=== PATIENT | male | born 1935 | race Caucasian/White ===

== ENCOUNTER 2021-07-26 15:52 | Inpatient (IN) | payer MEDICARE ==
[2021-07-26] MEDS ORDERED: IPRATROPIUM 0.5 MG/2.5 ML NEBU INHALATION STA (15:57)
[2021-07-26] MEDS ORDERED: SODIUM CHLORIDE 0.9% 1,000 ML IV STA (15:57)
[2021-07-26] MEDS ORDERED: ALBUTEROL NEBULIZED 2.5 MG/3 ML INHALATION STA (15:57)
[2021-07-26] MEDS ORDERED: methylPREDNISolone SOD SUCCI 125 MG/2 ML VIAL IV STA (15:57)
[2021-07-26] MEDS ORDERED: cefTRIAXone IN SWFI 1,000 MG/10 ML SYRINGE IVP STA (15:58)
--- NOTE | 2021-07-26 16:16 | ED ---
General Adult HPI - General Stated complaint: Hypoxia Time Seen by Provider: 07/26/21 15:57 Source: EMS, RN notes reviewed, old records reviewed Limitations: altered mental status - History of Present Illness Initial comments: 86 yo presenting with hypoxia and increased confusion. Patient had recent manish gnosis of coronavirus and has been at the custodial for rehabilitation. Patient is unable to contribute at all to the history. History is obtained from EMS who state that the patient was more confused than usual although he does have history of dementia and was found to be hypoxic. He was started on albuterol and subcutaneous IV fluids at the custodial prior to arrival. - Related Data Home Medications Medication Instructions Recorded Confirmed Acetaminophen [Tylenol 8 Hour] 650 mg PO Q6H PRN 07/26/21 07/26/21 Albuterol Sulfate [Ventolin HFA] 2 puff INHALATION RT-Q6H PRN 07/26/21 07/26/21 Ascorbic Acid [Vitamin C] 1,000 mg PO DAILY 07/26/21 07/26/21 Atorvastatin [Lipitor] 10 mg PO HS@2000 07/26/21 07/26/21 Eleanor-Tussin 10 ml PO Q6H PRN 07/26/21 07/26/21 Lidocaine 5% Patch [Lidoderm] 1 patch TOPICAL DAILY 07/26/21 07/26/21 Loperamide [Imodium] 4 mg PO QID PRN 07/26/21 07/26/21 lisinopriL [Zestril] 20 mg PO DAILY 07/26/21 07/26/21 methocarbamoL [Robaxin] 750 mg PO Q8H PRN 07/26/21 07/26/21 Allergies Allergy/AdvReac Type Severity Reaction Status Date / Time No Known Allergies Allergy Unverified 07/26/21 16:13 Review of Systems ROS Statement: Those systems with pertinent positive or pertinent negative responses have been documented in the HPI. ROS Other: All systems not noted in ROS Statement are negative. General Exam General appearance: lethargic, in distress Head exam: Present: atraumatic, normocephalic Eye exam: Present: normal appearance, PERRL ENT exam: Present: mucous membranes dry Neck exam: Present: normal inspection. Absent: tenderness, meningismus Respiratory exam: Present: respiratory distress, rales, rhonchi, decreased breath sounds Cardiovascular Exam: Present: tachycardia, irregular rhythm GI/Abdominal exam: Present: soft. Absent: distended, tenderness, guarding Extremities exam: Present: normal capillary refill. Absent: pedal edema Neurological exam: Present: alert. Absent: oriented X3 Skin exam: Present: warm, dry, intact, cyanosis (Peripheral) Course Vital Signs 07/26/21 07/26/21 07/26/21 15:55 16:20 16:30 Temperature 97.5 F L Pulse Rate 138 H 134 H 138 H Respiratory 22 28 H 28 H Rate Blood Pressure 72/47 73/49 75/51 O2 Sat by Pulse 84 L 83 L Oximetry 07/26/21 07/26/21 07/26/21 16:38 16:45 17:00 Temperature Pulse Rate 122 H 112 H Respiratory 22 28 H 28 H Rate Blood Pressure 75/55 108/78 O2 Sat by Pulse 93 L 94 L Oximetry 07/26/21 17:15 Temperature Pulse Rate 114 H Respiratory 28 H Rate Blood Pressure 94/66 O2 Sat by Pulse 100 Oximetry EKG Findings - EKG Comments: EKG Findings:: EKG: Atrial fibrillation with RVR rate of 137, low voltage, QRS duration 101, QTC 374, there is ST segment depression in V4 and V5, no ST segment elevation. Medical Decision Making - Medical Decision Making 86-year-old male visiting for evaluation of hypoxia altered mental status. Patient presents in extremis. He is tachypneic, he is in atrial fibrillation with RVR. His blood pressure is 70 systolic. Respiratory rate 30. I did discuss with his daughter Asia the possibility of intubation for mechanical ventilation and at this time she believes that the patient would not want to be intubated. Workup reveals significant abnormalities including leukocytosis, elevated hemoglobin, he is in acute renal failure with a creatinine of 5 and elevated BUN. He is acidotic which is a combination of uremia and lactic acidosis. He has a elevated troponin and BNP. Chest x-ray is relatively clear. He does test positive for coronavirus. Influenza is negative. He started on IV fluids with improvement in blood pressure and heart rate. He started on Cardizem for rate control. He started on heparin for both atrial fibrillation with RVR and elevated troponin. He's given antibiotics to cover for a bacterial pneumonia. I did discuss case with Dr. Mckenzie who will admit. Patient is very sick and his prognosis is poor. At this time after discussion with the daughter we will make the patient a DO NOT RESUSCITATE however medical measures will continue. - Lab Data Result diagrams: 07/26/21 16:11 07/26/21 16:11 Lab Results 07/26/21 07/26/21 07/26/21 Range/Units 16:11 16:11 16:11 WBC 15.3 H (3.8-10.6) k/uL RBC 6.34 H (4.30-5.90) m/uL Hgb 18.3 H (13.0-17.5) gm/dL Hct 56.9 H (39.0-53.0) % MCV 89.6 (80.0-100.0) fL MCH 28.9 (25.0-35.0) pg MCHC 32.3 (31.0-37.0) g/dL RDW 15.7 H (11.5-15.5) % Plt Count 177 (150-450) k/uL MPV 10.2 Neutrophils % 84 % Lymphocytes % 6 % Monocytes % 7 % Eosinophils % 0 % Basophils % 1 % Neutrophils # 12.8 H (1.3-7.7) k/uL Lymphocytes # 1.0 (1.0-4.8) k/uL Monocytes # 1.1 H (0-1.0) k/uL Eosinophils # 0.1 (0-0.7) k/uL Basophils # 0.1 (0-0.2) k/uL Hypochromasia Slight PT 12.2 H (9.0-12.0) sec INR 1.1 (<1.2) APTT 22.8 (22.0-30.0) sec Sodium 137 (137-145) mmol/L Potassium 5.8 H (3.5-5.1) mmol/L Chloride 105 (98-107) mmol/L Carbon Dioxide 14 L (22-30) mmol/L Anion Gap 18 mmol/L BUN 76 H (9-20) mg/dL Creatinine 5.25 H (0.66-1.25) mg/dL Est GFR (CKD-EPI)AfAm 11 (>60 ml/min/1.73 sqM) Est GFR (CKD-EPI)NonAf 9 (>60 ml/min/1.73 sqM) Glucose 133 H (74-99) mg/dL Plasma Lactic Acid Matt (0.7-2.0) mmol/L Calcium 8.9 (8.4-10.2) mg/dL Magnesium 2.5 H (1.6-2.3) mg/dL Total Bilirubin 1.3 (0.2-1.3) mg/dL AST 411 H (17-59) U/L ALT 62 H (4-49) U/L Alkaline Phosphatase 104 (38-126) U/L Troponin I (0.000-0.034) ng/mL NT-Pro-B Natriuret Pep pg/mL Total Protein 7.9 (6.3-8.2) g/dL Albumin 4.1 (3.5-5.0) g/dL Urine Color Urine Appearance (Clear) Urine pH (5.0-8.0) Ur Specific Meta (1.001-1.035) Urine Protein (Negative) Urine Glucose (UA) (Negative) Urine Ketones (Negative) Urine Blood (Negative) Urine Nitrite (Negative) Urine Bilirubin (Negative) Urine Urobilinogen (<2.0) mg/dL Ur Leukocyte Esterase (Negative) Coronavirus (PCR) (Not Detectd) Influenza Type A RNA (Not Detectd) Influenza Type B (PCR) (Not Detectd) 07/26/21 07/26/21 07/26/21 Range/Units 16:11 16:11 16:11 WBC (3.8-10.6) k/uL RBC (4.30-5.90) m/uL Hgb (13.0-17.5) gm/dL Hct (39.0-53.0) % MCV (80.0-100.0) fL MCH (25.0-35.0) pg MCHC (31.0-37.0) g/dL RDW (11.5-15.5) % Plt Count (150-450) k/uL MPV Neutrophils % % Lymphocytes % % Monocytes % % Eosinophils % % Basophils % % Neutrophils # (1.3-7.7) k/uL Lymphocytes # (1.0-4.8) k/uL Monocytes # (0-1.0) k/uL Eosinophils # (0-0.7) k/uL Basophils # (0-0.2) k/uL Hypochromasia PT (9.0-12.0) sec INR (<1.2) APTT (22.0-30.0) sec Sodium (137-145) mmol/L Potassium (3.5-5.1) mmol/L Chloride (98-107) mmol/L Carbon Dioxide (22-30) mmol/L Anion Gap mmol/L BUN (9-20) mg/dL Creatinine (0.66-1.25) mg/dL Est GFR (CKD-EPI)AfAm (>60 ml/min/1.73 sqM) Est GFR (CKD-EPI)NonAf (>60 ml/min/1.73 sqM) Glucose (74-99) mg/dL Plasma Lactic Acid Matt 2.6 H* (0.7-2.0) mmol/L Calcium (8.4-10.2) mg/dL Magnesium (1.6-2.3) mg/dL Total Bilirubin (0.2-1.3) mg/dL AST (17-59) U/L ALT (4-49) U/L Alkaline Phosphatase (38-126) U/L Troponin I 0.075 H* (0.000-0.034) ng/mL NT-Pro-B Natriuret Pep pg/mL Total Protein (6.3-8.2) g/dL Albumin (3.5-5.0) g/dL Urine Color Urine Appearance (Clear) Urine pH (5.0-8.0) Ur Specific Meta (1.001-1.035) Urine Protein (Negative) Urine Glucose (UA) (Negative) Urine Ketones (Negative) Urine Blood (Negative) Urine Nitrite (Negative) Urine Bilirubin (Negative) Urine Urobilinogen (<2.0) mg/dL Ur Leukocyte Esterase (Negative) Coronavirus (PCR) (Not Detectd) Influenza Type A RNA Not Detected (Not Detectd) Influenza Type B (PCR) Not Detected (Not Detectd) 07/26/21 07/26/21 07/26/21 Range/Units 16:30 16:30 16:50 WBC (3.8-10.6) k/uL RBC (4.30-5.90) m/uL Hgb (13.0-17.5) gm/dL Hct (39.0-53.0) % MCV (80.0-100.0) fL MCH (25.0-35.0) pg MCHC (31.0-37.0) g/dL RDW (11.5-15.5) % Plt Count (150-450) k/uL MPV Neutrophils % % Lymphocytes % % Monocytes % % Eosinophils % % Basophils % % Neutrophils # (1.3-7.7) k/uL Lymphocytes # (1.0-4.8) k/uL Monocytes # (0-1.0) k/uL Eosinophils # (0-0.7) k/uL Basophils # (0-0.2) k/uL Hypochromasia PT (9.0-12.0) sec INR (<1.2) APTT (22.0-30.0) sec Sodium (137-145) mmol/L Potassium (3.5-5.1) mmol/L Chloride (98-107) mmol/L Carbon Dioxide (22-30) mmol/L Anion Gap mmol/L BUN (9-20) mg/dL Creatinine (0.66-1.25) mg/dL Est GFR (CKD-EPI)AfAm (>60 ml/min/1.73 sqM) Est GFR (CKD-EPI)NonAf (>60 ml/min/1.73 sqM) Glucose (74-99) mg/dL Plasma Lactic Acid Matt (0.7-2.0) mmol/L Calcium (8.4-10.2) mg/dL Magnesium (1.6-2.3) mg/dL Total Bilirubin (0.2-1.3) mg/dL AST (17-59) U/L ALT (4-49) U/L Alkaline Phosphatase (38-126) U/L Troponin I (0.000-0.034) ng/mL NT-Pro-B Natriuret Pep 4330 pg/mL Total Protein (6.3-8.2) g/dL Albumin (3.5-5.0) g/dL Urine Color Yellow Urine Appearance Clear (Clear) Urine pH 5.0 (5.0-8.0) Ur Specific Meta 1.024 (1.001-1.035) Urine Protein Trace H (Negative) Urine Glucose (UA) Negative (Negative) Urine Ketones Negative (Negative) Urine Blood Negative (Negative) Urine Nitrite Negative (Negative) Urine Bilirubin Negative (Negative) Urine Urobilinogen <2.0 (<2.0) mg/dL Ur Leukocyte Esterase Negative (Negative) Coronavirus (PCR) Detected A (Not Detectd) Influenza Type A RNA (Not Detectd) Influenza Type B (PCR) (Not Detectd) Critical Care Time Critical Care Time: Yes Total Critical Care Time: 35 Disposition Clinical Impression: Atrial fibrillation with RVR, Acute renal failure, Troponin level elevated, COVID-19, Shock Disposition: ADMITTED IP TO THIS HOSP Condition: Serious Is patient prescribed a controlled substance at d/c from ED?: No Referrals: Nonstaff,Physician [Primary Care Provider] - 1-2 days Time of Disposition: 17:41
[2021-07-26 16:21] LABS: Basophils # (A) 0.1 k/uL (0-0.2); Basophils % (A) 1 %; Eosinophils # (A) 0.1 k/uL (0-0.7); Eosinophils % (A) 0 %; HGB 18.3 gm/dL (13.0-17.5); Hypochromasia Slight; Lymphocytes % (A) 6 %; MCH 28.9 pg (25.0-35.0); MCHC 32.3 g/dL (31.0-37.0); MCV 89.6 fL (80.0-100.0); Mean Platelet Volume 10.2; Monocytes # (A) 1.1 k/uL (0-1.0); Monocytes % (A) 7 %; Neutrophils # (A) 12.8 k/uL (1.3-7.7); Neutrophils % (A) 84 %; Platelet Count 177 k/uL (150-450); RBC 6.34 m/uL (4.30-5.90); RDW 15.7 % (11.5-15.5); WBC 15.3 k/uL (3.8-10.6)
[2021-07-26 16:33] LABS: Albumin 4.1 g/dL (3.5-5.0); Calcium 8.9 mg/dL (8.4-10.2); INR 1.1 (<1.2); Magnesium 2.5 mg/dL (1.6-2.3); Partial Thromboplastin Time 22.8 sec (22.0-30.0); Potassium 5.8 mmol/L (3.5-5.1); Prothrombin Time 12.2 sec (9.0-12.0); Total Bilirubin 1.3 mg/dL (0.2-1.3); Total Protein 7.9 g/dL (6.3-8.2)
[2021-07-26 16:36] LABS: HCT 56.9 % (39.0-53.0)
--- NOTE | 2021-07-26 16:40 | XR ---
EXAMINATION TYPE: XR chest 1V portable DATE OF EXAM: 07/26/2021 COMPARISON: NONE HISTORY: Difficulty breathing TECHNIQUE: Single frontal view of the chest is obtained. FINDINGS: Patient is rotated. Aorta is dense and somewhat ectatic. Heart is enlarged. No evident pne umothorax. Patchy basilar density is present within the lungs. There is rib fracture on the right sev enth rib of indeterminate age. There are overlying artifacts. There is a spinal curvature, degenerati ve disc change. IMPRESSION: Right-sided rib fracture of indeterminate acuity. Bibasilar atelectasis, difficult to ex clude pneumonia. Rotated exam. There may be aortic ectasia. Up as indicated.
[2021-07-26] MEDS ORDERED: AZITHROMYCIN 500 MG in SODIUM CHLORIDE 0.9% 250 ML IVPB STA (16:43)
[2021-07-26] MEDS ORDERED: SODIUM CHLORIDE 0.9% 500 ML 500 ML IV ONE (16:43)
[2021-07-26 16:48] LABS: Appearance,Urine Clear (Clear); Bilirubin,Urine Negative (Negative); Blood,Urine Negative (Negative); Color,Urine Yellow; Glucose,Urine (UA) Negative (Negative); Ketones,Urine Negative (Negative); Leukocyte Esterase,Urine Negative (Negative); Nitrite,Urine Negative (Negative); Protein,Urine Trace (Negative); Specific Gravity,Urine 1.024 (1.001-1.035); Urobilinogen,Urine <2.0 mg/dL (<2.0)
[2021-07-26] MEDS ORDERED: DILTIAZEM DRIP BOLUS FROM BAG 1 MG SOLN IV ONE (16:57)
[2021-07-26] MEDS: SODIUM CHLORIDE 0.9% 1,000 ML IV SCH (17:18)
[2021-07-26] MEDS: DILTIAZEM 125 MG in SODIUM CHLORIDE 0.9% 100 ML IV SCH (17:18)
[2021-07-26] MEDS ORDERED: HEPARIN SODIUM 1,000 UN/ML (10ML VL) IV ONE (17:29)
[2021-07-26] MEDS ORDERED: HEPARIN SODIUM 1,000 UN/ML (10ML VL) IV PRN (17:29)
[2021-07-26] MEDS ORDERED: NALOXONE 0.4 MG/ML 1 ML VIAL IV PRN (17:30)
[2021-07-26] MEDS ORDERED: ACETAMINOPHEN TAB 325 MG TAB PO PRN (17:30)
[2021-07-26] MEDS ORDERED: HYDROmorphone 0.5 MG/0.5 ML SYRINGE IVP PRN (17:30)
[2021-07-26] MEDS: HEPARIN SOD,PORK IN 0.45% NACL 25,000 UNIT in 0.45% NACL 1 250ML.BAG IV SCH (19:06)
[2021-07-26] MEDS ORDERED: ALBUTEROL HFA INHALER INHALATION STA (19:42)
[2021-07-26] MEDS: DEXAMETHASONE SOD PHOSPHATE 10 MG/ML 1 ML VIAL IVP SCH (21:02)
[2021-07-26] MEDS: ATORVASTATIN 10 MG TAB PO SCH ×2 (21:02→21:15)
[2021-07-27 02:58] LABS: INR 1.3 (<1.2); Prothrombin Time 13.4 sec (9.0-12.0)
[2021-07-27 04:48] LABS: Basophils % (A) 0 %; Eosinophils % (A) 0 %; HCT 53.9 % (39.0-53.0); HGB 16.6 gm/dL (13.0-17.5); Hypochromasia Moderate; Lymphocytes # (A) 0.5 k/uL (1.0-4.8); Lymphocytes % (A) 3 %; MCH 28.6 pg (25.0-35.0); MCHC 30.9 g/dL (31.0-37.0); MCV 92.7 fL (80.0-100.0); Monocytes # (A) 0.9 k/uL (0-1.0); Monocytes % (A) 6 %; Neutrophils # (A) 14.4 k/uL (1.3-7.7); Neutrophils % (A) 90 %; Platelet Count 149 k/uL (150-450); RBC 5.82 m/uL (4.30-5.90); RDW 15.8 % (11.5-15.5)
[2021-07-27 05:49] LABS: Glucose,Whole Blood 259 mg/dL (75-99)
[2021-07-27 08:36] LABS: Albumin 2.9 g/dL (3.5-5.0); Calcium 7.7 mg/dL (8.4-10.2); Total Bilirubin 0.9 mg/dL (0.2-1.3); Total Protein 6.1 g/dL (6.3-8.2)
[2021-07-27] MEDS: DEXAMETHASONE SOD PHOSPHATE 10 MG/ML 1 ML VIAL IVP SCH (09:20)
[2021-07-27] MEDS: INSULIN ASPART (NovoLOG) 100 UNIT/ML VIAL SQ SCH ×4 (09:22→21:40)
[2021-07-27] MEDS ORDERED: VANCOMYCIN IV PER PHARMACY 1 EACH MISC MISCELLANE PRN (10:56)
[2021-07-27] MEDS ORDERED: DEXTROSE 50% SYRINGE 50 ML IVP STA (11:08)
[2021-07-27] MEDS ORDERED: INSULIN REGULAR 100 UNIT/ML VIAL (IV) IV ONE (11:09)
[2021-07-27] MEDS ORDERED: SODIUM ZIRCONIUM CYCLOSILICATE 10 GM PACKET PO ONE (11:30)
[2021-07-27 11:41] LABS: Glucose,Whole Blood 106 mg/dL (75-99)
[2021-07-27] MEDS ORDERED: DEXTROSE 50% SYRINGE 50 ML IVP ONE (11:46)
[2021-07-27] MEDS: SODIUM CHLORIDE 0.45% 1,000 ML with SODIUM BICARB (1 MEQ/ML) 100 ML IV SCH ×2 (12:00)
[2021-07-27] MEDS ORDERED: VANCOMYCIN 1,500 MG in SODIUM CHLORIDE 0.9% 250 ML IVPB ONE (12:00)
--- NOTE | 2021-07-27 12:00 | P.CNPUL ---
History of Present Illness Consult date: 07/27/21 Requesting physician: Natanael Lyn Reason for consult: dyspnea, hypoxemia Chief complaint: Hypoxemia, altered mental status, CoVID positive History of present illness: This is a 86-year-old male patient who resides in a extended care facility and had been diagnosed with coronavirus back on 07/14/2021. He is currently nonverbal. Poor historian. Unable to obtain any information from the patient. His a history of dementia, hypertension, hyperlipidemia. He is brought into the emergency room yesterday. Chest x-ray revealed right-sided rib fractures of indeterminate acuity. Bibasilar atelectasis. EKG revealed atrial fibrillation with a rapid ventricular response. He's been initiated on a Cardizem drip at 5 mg per hour. Heparin drip. He is seen today in consultation on the selective care unit. Nursing staff is at the bedside. He is currently requiring 10 L high flow nasal cannula to maintain O2 saturations in the 90s. He has a significant coccyx ulceration. Blood cultures preliminary positive for gram- positive cocci in chains. White count 16.0. Hemoglobin 16.6. INR 1.3. Sodium 140. Potassium 6.0. Bicarb 15. BUN 84. Creatinine 5.82. Lactic acid 2.4. AST 669. ALT 90. Troponin 0.075. Coronavirus by PCR positive. Influenza screen negative. Urinalysis clean. He's been afebrile. Hemodynamically stable. He's been initiated on vancomycin. Review of Systems ROS unobtainable: due to mental status 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 Past Drug Use History: Unable to Obtain Medications and Allergies Home Medications Medication Instructions Recorded Confirmed Type Acetaminophen [Tylenol 8 Hour] 650 mg PO Q6H PRN 07/26/21 07/26/21 History Albuterol Sulfate [Ventolin HFA] 2 puff INHALATION RT-Q6H PRN 07/26/21 07/26/21 History Ascorbic Acid [Vitamin C] 1,000 mg PO DAILY 07/26/21 07/26/21 History Atorvastatin [Lipitor] 10 mg PO HS@199907/26/21 07/26/21 History Eleanor-Tussin 10 ml PO Q6H PRN 07/26/21 07/26/21 History Lidocaine 5% Patch [Lidoderm] 1 patch TOPICAL DAILY 07/26/21 07/26/21 History Loperamide [Imodium] 4 mg PO QID PRN 07/26/21 07/26/21 History lisinopriL [Zestril] 20 mg PO DAILY 07/26/21 07/26/21 History methocarbamoL [Robaxin] 750 mg PO Q8H PRN 07/26/21 07/26/21 History Allergies Allergy/AdvReac Type Severity Reaction Status Date / Time No Known Allergies Allergy Unverified 07/26/21 16:13 Physical Exam Vitals: Vital Signs Temp Pulse Pulse Resp BP BP Pulse Ox 07/27/21 04:00 97.1 F L 98 24 95/53 99 07/26/21 22:15 98.1 F 113 H 30 H 89/53 98 07/26/21 22:00 98.0 F 116 H 24 134/87 98 07/26/21 20:43 117 H 22 116/74 95 07/26/21 20:21 97 07/26/21 17:15 114 H 28 H 94/66 100 07/26/21 17:00 112 H 28 H 108/78 94 L 07/26/21 16:45 122 H 28 H 75/55 93 L 07/26/21 16:38 22 07/26/21 16:30 138 H 28 H 75/51 83 L 07/26/21 16:20 134 H 28 H 73/49 84 L 07/26/21 15:55 97.5 F L 138 H 22 72/47 Intake and Output 07/26/21 07/27/21 07/27/21 22:59 06:59 14:59 Intake Total 82.183 48.169 Balance 82.183 48.169 Intake: Intake, IV Titration 82.183 48.169 Amount Heparin Sod,Pork in 0.45% 82.183 48.169 NaCl 25,000 unit In 0.45 % NaCl 1 250ml.bag @ 11. 025 UNITS/KG/HR 10.002 mls/hr IV .Q24H [facility] Rx#: [id number] Other: Voiding Method Diaper Diaper Incontinent Incontinent # Voids 1 # Bowel Movements 1 Weight 90.718 kg GENERAL EXAM: Awake, nonverbal, frail 86-year-old male patient on 10 L high flow nasal cannula, comfortable in no apparent distress. HEAD: Normocephalic. EYES: Normal reaction of pupils, equal size. NOSE: Clear with pink turbinates. THROAT: No erythema or exudates. NECK: No masses, no JVD. CHEST: No chest wall deformity. LUNGS: Equal air entry with bilateral scattered rhonchi. CVS: S1 and S2 normal with no audible murmur, regular rhythm. ABDOMEN: No hepatosplenomegaly, normal bowel sounds, no guarding or rigidity. SPINE: No scoliosis or deformity SKIN: No rashes CENTRAL NERVOUS SYSTEM: No focal deficits, tone is normal in all 4 extremities. EXTREMITIES: There is no peripheral edema. No clubbing, no cyanosis. Peripheral pulses are intact. Results - Laboratory Findings CBC and BMP: 07/27/21 04:03 07/27/21 07:17 PT/INR, D-dimer PT 13.4 sec (9.0-12.0) H 07/27/21 01:57 INR 1.3 (<1.2) H 07/27/21 01:57 Abnormal lab findings: Abnormal Labs 07/26/21 07/26/21 07/26/21 16:11 16:11 16:11 WBC 15.3 H RBC 6.34 H Hgb 18.3 H Hct 56.9 H MCHC RDW 15.7 H Plt Count Neutrophils # 12.8 H Lymphocytes # Monocytes # 1.1 H PT 12.2 H INR APTT Potassium 5.8 H Chloride Carbon Dioxide 14 L BUN 76 H Creatinine 5.25 H Glucose 133 H POC Glucose (mg/dL) Plasma Lactic Acid Matt Calcium Magnesium 2.5 H AST 411 H ALT 62 H Troponin I Total Protein Albumin Urine Protein Coronavirus (PCR) 07/26/21 07/26/21 07/26/21 16:11 16:11 16:30 WBC RBC Hgb Hct MCHC RDW Plt Count Neutrophils # Lymphocytes # Monocytes # PT INR APTT Potassium Chloride Carbon Dioxide BUN Creatinine Glucose POC Glucose (mg/dL) Plasma Lactic Acid Matt 2.6 H* Calcium Magnesium AST ALT Troponin I 0.075 H* Total Protein Albumin Urine Protein Trace H Coronavirus (PCR) 07/26/21 07/26/21 07/26/21 16:30 19:20 21:42 WBC RBC Hgb Hct MCHC RDW Plt Count Neutrophils # Lymphocytes # Monocytes # PT INR APTT Potassium 5.6 H Chloride Carbon Dioxide BUN Creatinine Glucose POC Glucose (mg/dL) Plasma Lactic Acid Matt 5.1 H* Calcium Magnesium AST ALT Troponin I Total Protein Albumin Urine Protein Coronavirus (PCR) Detected A 07/26/21 07/27/21 07/27/21 23:15 01:57 01:57 WBC RBC Hgb Hct MCHC RDW Plt Count Neutrophils # Lymphocytes # Monocytes # PT 13.4 H INR 1.3 H APTT 107.7 H* Potassium Chloride Carbon Dioxide BUN Creatinine Glucose POC Glucose (mg/dL) Plasma Lactic Acid Matt 4.3 H* Calcium Magnesium AST ALT Troponin I Total Protein Albumin Urine Protein Coronavirus (PCR) 07/27/21 07/27/21 07/27/21 04:03 04:03 05:48 WBC 16.0 H RBC Hgb Hct 53.9 H MCHC 30.9 L RDW 15.8 H Plt Count 149 L Neutrophils # 14.4 H Lymphocytes # 0.5 L Monocytes # PT INR APTT Potassium Chloride Carbon Dioxide BUN Creatinine Glucose POC Glucose (mg/dL) 259 H Plasma Lactic Acid Matt 2.7 H* Calcium Magnesium AST ALT Troponin I Total Protein Albumin Urine Protein Coronavirus (PCR) 07/27/21 07/27/21 07/27/21 07:17 07:17 10:00 WBC RBC Hgb Hct MCHC RDW Plt Count Neutrophils # Lymphocytes # Monocytes # PT INR APTT 81.0 H Potassium 6.0 H Chloride 111 H Carbon Dioxide 15 L BUN 84 H Creatinine 5.82 H Glucose 130 H POC Glucose (mg/dL) Plasma Lactic Acid Matt 2.4 H* Calcium 7.7 L Magnesium AST 669 H ALT 90 H Troponin I Total Protein 6.1 L Albumin 2.9 L Urine Protein Coronavirus (PCR) 07/27/21 11:40 WBC RBC Hgb Hct MCHC RDW Plt Count Neutrophils # Lymphocytes # Monocytes # PT INR APTT Potassium Chloride Carbon Dioxide BUN Creatinine Glucose POC Glucose (mg/dL) 106 H Plasma Lactic Acid Matt Calcium Magnesium AST ALT Troponin I Total Protein Albumin Urine Protein Coronavirus (PCR) - Diagnostic Findings Chest x-ray: image reviewed Assessment and Plan Assessment: 1 Acute hypoxemic respiratory failure secondary to COVID-19 pneumonia with p atchy basilar densities. Initial diagnosis on 07/14/2021 2 Right-sided rib fractures of indeterminate acuity 3 Sepsis secondary to bacteremia with gram-positive cocci 4 Transaminitis secondary to above 4 Acute on chronic renal failure 5 Deep tissue ulceration of the coccyx 6 Dementia, nonverbal 7 Atrial fibrillation with a rapid ventricular response currently on a Cardizem drip. Heparin drip. 8 Hyperkalemia Thank: The patient was seen and evaluated Chest x-ray and labs reviewed Continued on vancomycin Continue Decadron Titrate the FiO2 as tolerated Prognosis is poor DO NOT RESUSCITATE/DO NOT INTUBATE CODE STATUS We will continue to follow and make further recommendations based on his clinical status I have personally seen and examined the patient, performed the documentation and the assessment and plan as written. Number of minutes spent on the visit: 20.
--- NOTE | 2021-07-27 12:21 | P.CRDCN ---
History of Present Illness Consult date: 07/27/21 History of present illness: CHIEF COMPLAINT: A. fib with RVR HISTORY OF PRESENT ILLNESS: This is a 86-year-old male with a past medical history significant for hypertension and hyperlipidemia. 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 We have been asked to see the patient in consultation for A. fib with RVR. Patient examined at the bedside. The patient was brought to the hospital from an ECF secondary to increased confusion and hypoxia. The patient was found to be in A. fib with RVR. It does not appear that the patient has a history of atrial fibrillation. The patient was started on IV heparin and IV Cardizem. Per nursing, the patient is unable to take oral medications. * EKG reveals A. fib with RVR * Chest xray right-sided rib fractures of indeterminate acuity. Bibasilar atelectasis, difficult to exclude pneumonia. * Laboratory data: WBC 16.0. Hemoglobin 16.6. Platelet count 149. Sodium 142. Potassium 6.0. BUN 84. Creatinine 5.82. Troponin 0.075. ProBNP 4330. * Current home cardiac medications include lisinopril 20 mg daily and atorvastatin 10 mg daily REVIEW OF SYSTEMS: Thorough review of systems not completed secondary to limited evaluation/examination due to Covid19 PHYSICAL EXAM: Thorough physical exam not completed secondary to limited evaluation/examination due to Covid19 ASSESSMENT: Altered mental status Covid 19 Abnormal troponin, likely secondary to above Acute hypoxic respiratory failure Atrial fibrillation with RVR, appears to be new onset Hyperkalemia Acute renal failure Transaminitis Hypertension Hyperlipidemia PLAN: Per nursing, the patient is unable to take oral medications. Continue IV Cardizem and IV heparin. If patients condition improves and he is able to tolerate oral medications would recommend transitioning to Eliquis and metoprolol. Continue telemetry monitoring. Patients prognosis appears very poor. Recommend hospice care. Nurse practitioner note has been reviewed by physician. Signing provider agrees with the documented findings, assessment, and plan of care. 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 Past Drug Use History: Unable to Obtain Medications and Allergies Home Medications Medication Instructions Recorded Confirmed Type Acetaminophen [Tylenol 8 Hour] 650 mg PO Q6H PRN 07/26/21 07/26/21 History Albuterol Sulfate [Ventolin HFA] 2 puff INHALATION RT-Q6H PRN 07/26/21 07/26/21 History Ascorbic Acid [Vitamin C] 1,000 mg PO DAILY 07/26/21 07/26/21 History Atorvastatin [Lipitor] 10 mg PO HS@199907/26/21 07/26/21 History Eleanor-Tussin 10 ml PO Q6H PRN 07/26/21 07/26/21 History Lidocaine 5% Patch [Lidoderm] 1 patch TOPICAL DAILY 07/26/21 07/26/21 History Loperamide [Imodium] 4 mg PO QID PRN 07/26/21 07/26/21 History lisinopriL [Zestril] 20 mg PO DAILY 07/26/21 07/26/21 History methocarbamoL [Robaxin] 750 mg PO Q8H PRN 07/26/21 07/26/21 History Allergies Allergy/AdvReac Type Severity Reaction Status Date / Time No Known Allergies Allergy Unverified 07/26/21 16:13 Physical Exam Vitals: Vital Signs Temp Pulse Pulse Resp BP BP Pulse Ox 07/27/21 04:00 97.1 F L 98 24 95/53 99 07/26/21 22:15 98.1 F 113 H 30 H 89/53 98 07/26/21 22:00 98.0 F 116 H 24 134/87 98 07/26/21 20:43 117 H 22 116/74 95 07/26/21 20:21 97 07/26/21 17:15 114 H 28 H 94/66 100 07/26/21 17:00 112 H 28 H 108/78 94 L 07/26/21 16:45 122 H 28 H 75/55 93 L 07/26/21 16:38 22 07/26/21 16:30 138 H 28 H 75/51 83 L 07/26/21 16:20 134 H 28 H 73/49 84 L 07/26/21 15:55 97.5 F L 138 H 22 72/47 Intake and Output 07/26/21 07/27/21 07/27/21 22:59 06:59 14:59 Intake Total 82.183 48.169 Balance 82.183 48.169 Intake: Intake, IV Titration 82.183 48.169 Amount Heparin Sod,Pork in 0.45% 82.183 48.169 NaCl 25,000 unit In 0.45 % NaCl 1 250ml.bag @ 11. 025 UNITS/KG/HR 10.002 mls/hr IV .Q24H [facility] Rx#: [id number] Other: Voiding Method Diaper Diaper Incontinent Incontinent # Voids 1 # Bowel Movements 1 Weight 90.718 kg Results 07/27/21 04:03 07/27/21 07:17 Cardiac Enzymes 07/26/21 07/26/21 07/27/21 Range/Units 16:11 16:11 07:17 AST 411 H 669 H (17-59) U/L Troponin I 0.075 H* (0.000-0.034) ng/mL Coagulation 07/26/21 07/27/21 07/27/21 Range/Units 16:11 01:57 01:57 PT 12.2 H 13.4 H (9.0-12.0) sec APTT 22.8 107.7 H* (22.0-30.0) sec 07/27/21 Range/Units 10:00 PT (9.0-12.0) sec APTT 81.0 H (22.0-30.0) sec CBC 07/26/21 07/27/21 Range/Units 16:11 04:03 WBC 15.3 H 16.0 H (3.8-10.6) k/uL RBC 6.34 H 5.82 (4.30-5.90) m/uL Hgb 18.3 H 16.6 (13.0-17.5) gm/dL Hct 56.9 H 53.9 H (39.0-53.0) % Plt Count 177 149 L (150-450) k/uL Comprehensive Metabolic Panel 07/26/21 07/26/21 07/27/21 Range/Units 16:11 21:42 07:17 Sodium 137 142 (137-145) mmol/L Potassium 5.8 H 5.6 H 6.0 H (3.5-5.1) mmol/L Chloride 105 111 H (98-107) mmol/L Carbon Dioxide 14 L 15 L (22-30) mmol/L BUN 76 H 84 H (9-20) mg/dL Creatinine 5.25 H 5.82 H (0.66-1.25) mg/dL Glucose 133 H 130 H (74-99) mg/dL Calcium 8.9 7.7 L (8.4-10.2) mg/dL AST 411 H 669 H (17-59) U/L ALT 62 H 90 H (4-49) U/L Alkaline Phosphatase 104 76 (38-126) U/L Total Protein 7.9 6.1 L (6.3-8.2) g/dL Albumin 4.1 2.9 L (3.5-5.0) g/dL Current Medications Generic Name Dose Route Start Last Admin Trade Name Freq PRN Reason Stop Dose Admin Acetaminophen 650 mg 07/26/21 17:30 Acetaminophen Tab 325 Mg Tab PO Q6HR PRN Mild Pain or Fever > 100.5 Atorvastatin Calcium 10 mg 07/26/21 20:00 07/26/21 21:15 Atorvastatin 10 Mg Tab PO Not Given HS@2000 [facility] Dexamethasone Sodium Phosphate 6 mg 07/26/21 19:15 07/27/21 09:20 Dexamethasone Sod Phosphate 10 Mg/Ml 1 Ml Vial IVP 6 mg DAILY [facility] Administration Heparin Sodium (Porcine) 0 unit 07/26/21 17:29 Heparin Sodium 1,000 Un/Ml (10ml Vl) IV PER PROTOCOL PRN Low PTT Protocol Hydromorphone HCl 0.5 mg 07/26/21 17:30 Hydromorphone 0.5 Mg/0.5 Ml Syringe IVP Q3HR PRN Moderate Pain Diltiazem HCl 125 mg/ Sodium 125 mls @ 5 mls/hr 07/26/21 17:00 07/26/21 17:18 Chloride IV 5 mg/hr .Q24H [facility] 5 mls/hr Administration 5 MG/HR Heparin Sodium/Sodium Chloride 250 mls @ 10.002 mls/hr 07/26/21 17:30 07/27/21 11:01 25,000 unit/ Sodium Chloride IV 6.025 units/kg/hr .Q24H [facility] 5.466 mls/hr Titration Protocol 11.025 UNITS/KG/HR Sodium Bicarbonate 100 ml/ 1,100 mls @ 100 mls/hr 07/27/21 12:00 07/27/21 12:00 Sodium Chloride IV 100 mls/hr .Q11H [facility] Administration Vancomycin HCl 1,500 mg/ 250 mls @ 125 mls/hr 07/27/21 12:00 07/27/21 12:01 Sodium Chloride IVPB 07/27/21 13:59 125 mls/hr ONCE ONE Administration Vancomycin HCl 1,500 mg/ 250 mls @ 125 mls/hr 07/28/21 09:00 Sodium Chloride IVPB 07/28/21 10:59 ONCE ONE Insulin Aspart 0 unit 07/27/21 07:30 07/27/21 12:01 Insulin Aspart (Novolog) 100 Unit/Ml Vial SQ Not Given ACHS [facility] Protocol Miscellaneous Information 1 each 07/27/21 10:56 Vancomycin Iv Per Pharmacy 1 Each Misc MISCELLANE DIRECTED PRN Per Protocol Protocol Naloxone HCl 0.2 mg 07/26/21 17:30 Naloxone 0.4 Mg/Ml 1 Ml Vial IV Q2M PRN Opioid Reversal Intake and Output 07/26/21 07/27/21 07/27/21 22:59 06:59 14:59 Intake Total 82.183 48.169 Balance 82.183 48.169 Intake: Intake, IV Titration 82.183 48.169 Amount Heparin Sod,Pork in 0.45% 82.183 48.169 NaCl 25,000 unit In 0.45 % NaCl 1 250ml.bag @ 11. 025 UNITS/KG/HR 10.002 mls/hr IV .Q24H [facility] Rx#: [id number] Other: Voiding Method Diaper Diaper Incontinent Incontinent # Voids 1 # Bowel Movements 1 Weight 90.718 kg 07/27/21 04:03 07/27/21 07:17
--- NOTE | 2021-07-27 12:42 | US ---
EXAMINATION TYPE: US kidneys/renal and bladder DATE OF EXAM: 07/27/2021 COMPARISON: NONE CLINICAL HISTORY: RF. A FIB; RVR; hypoxia; COVID EXAM MEASUREMENTS: Right Kidney: 9.0 x 6.3 x 4.6 cm Left Kidney: 9.5 x 5.9 x 4.5 cm Post Void Residual Volume: not assessed on inpatient with mildly distended bladder who is unable to ambulate. Right Kidney: No hydronephrosis or masses seen Left Kidney: No hydronephrosis or masses seen Bladder: Contracted Bilateral Jets seen: NA There is no evidence for hydronephrosis at this point in time. No nephrolithiasis is seen. No livier s are identified. The urinary bladder is anechoic. IMPRESSION: There are some limitations to the exam. No evident hydronephrosis.
--- NOTE | 2021-07-27 13:22 | P.NPCON ---
History of Present Illness - Reason for Consult acute renal failure - History of Present Illness Patient is a 86-year-old male who is admitted from the [facility] with increased weakness. Patient is found to be in A. fib with RVR. He has a large sacral decub. Blood cultures are positive for gram-positive cocci. Patient is poor historian. Labs revealed serum creatinine 5.8 and potassium of 6.0 with CO2 of 15. Lactic acid was elevated and it is currently down to 2.0. Stites patient is currently voiding in brief. 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 Past Drug Use History: Unable to Obtain Medications and Allergies Home Medications Medication Instructions Recorded Confirmed Type Acetaminophen [Tylenol 8 Hour] 650 mg PO Q6H PRN 07/26/21 07/26/21 History Albuterol Sulfate [Ventolin HFA] 2 puff INHALATION RT-Q6H PRN 07/26/21 07/26/21 History Ascorbic Acid [Vitamin C] 1,000 mg PO DAILY 07/26/21 07/26/21 History Atorvastatin [Lipitor] 10 mg PO HS@2000 07/26/21 07/26/21 History Eleanor-Tussin 10 ml PO Q6H PRN 07/26/21 07/26/21 History Lidocaine 5% Patch [Lidoderm] 1 patch TOPICAL DAILY 07/26/21 07/26/21 History Loperamide [Imodium] 4 mg PO QID PRN 07/26/21 07/26/21 History lisinopriL [Zestril] 20 mg PO DAILY 07/26/21 07/26/21 History methocarbamoL [Robaxin] 750 mg PO Q8H PRN 07/26/21 07/26/21 History Allergies Allergy/AdvReac Type Severity Reaction Status Date / Time No Known Allergies Allergy Unverified 07/26/21 16:13 Physical Exam Vitals: Vital Signs Temp Pulse Pulse Resp BP BP Pulse Ox 07/27/21 04:00 97.1 F L 98 24 95/53 99 07/26/21 22:15 98.1 F 113 H 30 H 89/53 98 07/26/21 22:00 98.0 F 116 H 24 134/87 98 07/26/21 20:43 117 H 22 116/74 95 07/26/21 20:21 97 07/26/21 17:15 114 H 28 H 94/66 100 07/26/21 17:00 112 H 28 H 108/78 94 L 07/26/21 16:45 122 H 28 H 75/55 93 L 07/26/21 16:38 22 07/26/21 16:30 138 H 28 H 75/51 83 L 07/26/21 16:20 134 H 28 H 73/49 84 L 07/26/21 15:55 97.5 F L 138 H 22 72/47 Intake and Output 07/26/21 07/27/21 07/27/21 22:59 06:59 14:59 Intake Total 82.183 48.169 Balance 82.183 48.169 Intake: Intake, IV Titration 82.183 48.169 Amount Heparin Sod,Pork in 0.45% 82.183 48.169 NaCl 25,000 unit In 0.45 % NaCl 1 250ml.bag @ 11. 025 UNITS/KG/HR 10.002 mls/hr IV .Q24H [facility] Rx#: [id number] Other: Voiding Method Diaper Diaper Incontinent Incontinent # Voids 1 # Bowel Movements 1 Weight 90.718 kg Patient is awake, comfortable, not in any acute distress. 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 Acute kidney injury most likely ATN, rule out urine retention. Component of hypovolemia also present. UA is completely benign. 2. Hyperkalemia associated with acute kidney injury and metabolic acidosis 3. Lactic acidosis 4. Hypotension related to sepsis 5. A. fib with RVR maintained on Cardizem drip 6. Sepsis with blood cultures growing gram-positive cocci 7. Large sacral wound 8. Metabolic acidosis associated with acute kidney injury as well as lactic acidosis Plan: Start bicarb drip Lokelma by mouth 1 Continue empiric antibiotics Check bladder scan rule out urine retention Continue empiric antibiotics Repeat labs in a.m. Check ultrasound of the kidneys
[2021-07-27] MEDS: DILTIAZEM 125 MG in SODIUM CHLORIDE 0.9% 100 ML IV SCH (16:14)
[2021-07-27] MEDS: SODIUM CHLORIDE 0.9% 1,000 ML IV SCH (16:15)
[2021-07-27 16:27] LABS: Glucose,Whole Blood 106 mg/dL (75-99)
[2021-07-27] MEDS ORDERED: FUROSEMIDE 10 MG/ML 10 ML VIAL IV STA (18:16)
[2021-07-27] MEDS ORDERED: FUROSEMIDE 10 MG/ML 10 ML VIAL IVP STA (18:23)
[2021-07-27 20:37] LABS: Glucose,Whole Blood 94 mg/dL (75-99)
--- NOTE | 2021-07-27 21:27 | HP ---
HISTORY AND PHYSICAL This patient is an 86-year-old white male who came in with acute renal failure, COVID pneumonia, was found to have severe decubitus necrotic possibly rectal fistula or ulcerations. He was found to be in atrial fibrillation with RVR and blood culture was positive for Gram-positive cocci. He was admitted with sepsis secondary to COVID pneumonia and possibly rectal vascular ulcers and acute hypoxic respiratory failure, hyperkalemia and acute renal failure with prerenal renal insufficiency. PAST MEDICAL HISTORY: Hypertension, memory impairment, pneumonia. PAST SURGICAL HISTORY: Tonsillectomy. SOCIAL HISTORY: He is a former smoker. HOME MEDICINES: See list. ALLERGIES: NEGATIVE. PHYSICAL EXAMINATION: Vital signs: Temperature 98, heart rate 116 to 138, respiratory rate 22 to 30, pulse as mentioned in the mid 100s to 130s to 110s. Blood pressure was as low as 70s on admission, now 130s over 80s. O2 was 83 on admission, now is 99. Blood pressure is low 90s over 50s. He is awake, comfortable, but pleasantly confused. Heart S1, S2. Lungs with scattered rhonchi and decreased breath sounds. Abdomen distended, obesity. Extremities with no significant edema. BUILDING SPECIALIST: All 4 extremities are moving. Calcium is 7.7, magnesium 2.5. White count 16, hemoglobin 16.6, platelets 149, BUN 34, creatinine 5.82, sodium 142, potassium 6.0. ASSESSMENT: 1. Acute kidney injury, most likely acute tubular necrosis. 2. Hyperkalemia. 3. Lactic acidosis. 4. Hypotension related to sepsis. 5. Atrial fibrillation, rapid ventricular response. Cardizem drip. 6. Sepsis, Gram-positive cocci with positive bacteremia. 7. Large sacral wound. 8. Metabolic acidosis. Bicarb drip. 9. Hyperkalemia. Medications, antibiotics. COVID treatments. Bladder scan. Empiric antibiotics. Ultrasound of kidneys. Electrolyte abnormalities will have to be reviewed and taken care of, hypertension dealt with with fluid boluses. Prognosis extremely guarded. MMODL / IJN: [id number] /
[2021-07-27] MEDS: ATORVASTATIN 10 MG TAB PO SCH (23:09)
[2021-07-27] MEDS: HEPARIN SOD,PORK IN 0.45% NACL 25,000 UNIT in 0.45% NACL 1 250ML.BAG IV SCH (23:40)
--- NOTE | 2021-07-28 00:01 | P.CONS ---
History of Present Illness - Reason for Consult Consult date: 07/27/21 Covid and bacteremia Requesting physician: Natanael Lyn - Chief Complaint Shortness of breath x few days - History of Present Illness Patient is 86-year-old male who apparently was diagnosed with a covid19 on 07/14/2021 and this patient subsequently has been admitted from [facility] for rehabilitation patient was brought into the [facility] ER yesterday afternoon for evaluation of increasing confusion and the patient also noticed to be hypoxic, patient will presentation to the hospital was afebrile and no fever has been recorded subsequently patient was hypoxic with O2 sats of 84% on room air and is currently requiring 10 L high flow oxygen she did have white count of 15.3 with a left shift did have elevated BUN and creatinine elevated lactic acid as well as liver enzymes urine has been negative COVID test was positive influenza was negative patient did have a chest x-ray right-sided rib fracture bibasilar atelectasis difficult to exclude pneumonia patient subsequently did have blood cultures drawn which came back positive with gram-positive cocci patient was started on vancomycin infectious disease was consulted for further management most information has been obtained from review the chart and the patient himself evaluated good historian no specifically has been complaining of shortness of breath but denies any chest pain he did have a cough not bringing up any sputum no vomiting or diarrhea has been reported Review of Systems Positive point has been mentioned in the HPI rest of the systems are negative 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 Past Drug Use History: Unable to Obtain Medications and Allergies Home Medications Medication Instructions Recorded Confirmed Type Acetaminophen [Tylenol 8 Hour] 650 mg PO Q6H PRN 07/26/21 07/26/21 History Albuterol Sulfate [Ventolin HFA] 2 puff INHALATION RT-Q6H PRN 07/26/21 07/26/21 History Ascorbic Acid [Vitamin C] 1,000 mg PO DAILY 07/26/21 07/26/21 History Atorvastatin [Lipitor] 10 mg PO HS@2000 07/26/21 07/26/21 History Eleanor-Tussin 10 ml PO Q6H PRN 07/26/21 07/26/21 History Lidocaine 5% Patch [Lidoderm] 1 patch TOPICAL DAILY 07/26/21 07/26/21 History Loperamide [Imodium] 4 mg PO QID PRN 07/26/21 07/26/21 History lisinopriL [Zestril] 20 mg PO DAILY 07/26/21 07/26/21 History methocarbamoL [Robaxin] 750 mg PO Q8H PRN 07/26/21 07/26/21 History Allergies Allergy/AdvReac Type Severity Reaction Status Date / Time No Known Allergies Allergy Unverified 07/26/21 16:13 Physical Exam Vitals: Vital Signs Temp Pulse Pulse Resp BP BP Pulse Ox 07/27/21 04:00 97.1 F L 98 24 95/53 99 07/26/21 22:15 98.1 F 113 H 30 H 89/53 98 07/26/21 22:00 98.0 F 116 H 24 134/87 98 07/26/21 20:43 117 H 22 116/74 95 07/26/21 20:21 97 07/26/21 17:15 114 H 28 H 94/66 100 07/26/21 17:00 112 H 28 H 108/78 94 L 07/26/21 16:45 122 H 28 H 75/55 93 L 07/26/21 16:38 22 07/26/21 16:30 138 H 28 H 75/51 83 L 07/26/21 16:20 134 H 28 H 73/49 84 L 07/26/21 15:55 97.5 F L 138 H 22 72/47 Intake and Output 07/26/21 07/27/21 07/27/21 22:59 06:59 14:59 Intake Total 82.183 48.169 Balance 82.183 48.169 Intake: Intake, IV Titration 82.183 48.169 Amount Heparin Sod,Pork in 0.45% 82.183 48.169 NaCl 25,000 unit In 0.45 % NaCl 1 250ml.bag @ 11. 025 UNITS/KG/HR 10.002 mls/hr IV .Q24H [facility] Rx#: [id number] Other: Voiding Method Diaper Diaper Incontinent Incontinent # Voids 1 # Bowel Movements 1 Weight 90.718 kg GENERAL DESCRIPTION: An elderly male lying in bed, no distress. No tachypnea or accessory muscle of respiration use. HEENT: Shows Pallor , no scleral icterus. Oral mucous membrane is dry. No pharyngeal erythema or thrush NECK: Trachea central, no thyromegaly. LUNGS: Unlabored breathing. Decreased present at the base. No wheeze or crackle. HEART: S1, S2, regular rate and rhythm. No loud murmur ABDOMEN: Soft, no tenderness , guarding or rigidity, no organomegaly EXTREMITIES: No edema of feet. SKIN: No rash, no masses palpable. Unstageable pressure ulcer to the sacral area with a black pressure NEUROLOGICAL: The patient is awake, alert, oriented x2, mood and affect normal. Results CBC & Chem 7: 07/27/21 04:03 07/27/21 07:17 Labs: Abnormal Lab Results - Last 24 Hours (Table) 07/26/21 07/26/21 07/26/21 Range/Units 16:11 16:11 16:11 WBC 15.3 H (3.8-10.6) k/uL RBC 6.34 H (4.30-5.90) m/uL Hgb 18.3 H (13.0-17.5) gm/dL Hct 56.9 H (39.0-53.0) % MCHC (31.0-37.0) g/dL RDW 15.7 H (11.5-15.5) % Plt Count (150-450) k/uL Neutrophils # 12.8 H (1.3-7.7) k/uL Lymphocytes # (1.0-4.8) k/uL Monocytes # 1.1 H (0-1.0) k/uL PT 12.2 H (9.0-12.0) sec INR (<1.2) APTT (22.0-30.0) sec Potassium 5.8 H (3.5-5.1) mmol/L Chloride (98-107) mmol/L Carbon Dioxide 14 L (22-30) mmol/L BUN 76 H (9-20) mg/dL Creatinine 5.25 H (0.66-1.25) mg/dL Glucose 133 H (74-99) mg/dL POC Glucose (mg/dL) (75-99) mg/dL Plasma Lactic Acid Matt (0.7-2.0) mmol/L Calcium (8.4-10.2) mg/dL Magnesium 2.5 H (1.6-2.3) mg/dL AST 411 H (17-59) U/L ALT 62 H (4-49) U/L Troponin I (0.000-0.034) ng/mL Total Protein (6.3-8.2) g/dL Albumin (3.5-5.0) g/dL Urine Protein (Negative) Coronavirus (PCR) (Not Detectd) 07/26/21 07/26/21 07/26/21 Range/Units 16:11 16:11 16:30 WBC (3.8-10.6) k/uL RBC (4.30-5.90) m/uL Hgb (13.0-17.5) gm/dL Hct (39.0-53.0) % MCHC (31.0-37.0) g/dL RDW (11.5-15.5) % Plt Count (150-450) k/uL Neutrophils # (1.3-7.7) k/uL Lymphocytes # (1.0-4.8) k/uL Monocytes # (0-1.0) k/uL PT (9.0-12.0) sec INR (<1.2) APTT (22.0-30.0) sec Potassium (3.5-5.1) mmol/L Chloride (98-107) mmol/L Carbon Dioxide (22-30) mmol/L BUN (9-20) mg/dL Creatinine (0.66-1.25) mg/dL Glucose (74-99) mg/dL POC Glucose (mg/dL) (75-99) mg/dL Plasma Lactic Acid Matt 2.6 H* (0.7-2.0) mmol/L Calcium (8.4-10.2) mg/dL Magnesium (1.6-2.3) mg/dL AST (17-59) U/L ALT (4-49) U/L Troponin I 0.075 H* (0.000-0.034) ng/mL Total Protein (6.3-8.2) g/dL Albumin (3.5-5.0) g/dL Urine Protein Trace H (Negative) Coronavirus (PCR) (Not Detectd) 07/26/21 07/26/21 07/26/21 Range/Units 16:30 19:20 21:42 WBC (3.8-10.6) k/uL RBC (4.30-5.90) m/uL Hgb (13.0-17.5) gm/dL Hct (39.0-53.0) % MCHC (31.0-37.0) g/dL RDW (11.5-15.5) % Plt Count (150-450) k/uL Neutrophils # (1.3-7.7) k/uL Lymphocytes # (1.0-4.8) k/uL Monocytes # (0-1.0) k/uL PT (9.0-12.0) sec INR (<1.2) APTT (22.0-30.0) sec Potassium 5.6 H (3.5-5.1) mmol/L Chloride (98-107) mmol/L Carbon Dioxide (22-30) mmol/L BUN (9-20) mg/dL Creatinine (0.66-1.25) mg/dL Glucose (74-99) mg/dL POC Glucose (mg/dL) (75-99) mg/dL Plasma Lactic Acid Matt 5.1 H* (0.7-2.0) mmol/L Calcium (8.4-10.2) mg/dL Magnesium (1.6-2.3) mg/dL AST (17-59) U/L ALT (4-49) U/L Troponin I (0.000-0.034) ng/mL Total Protein (6.3-8.2) g/dL Albumin (3.5-5.0) g/dL Urine Protein (Negative) Coronavirus (PCR) Detected A (Not Detectd) 07/26/21 07/27/21 07/27/21 Range/Units 23:15 01:57 01:57 WBC (3.8-10.6) k/uL RBC (4.30-5.90) m/uL Hgb (13.0-17.5) gm/dL Hct (39.0-53.0) % MCHC (31.0-37.0) g/dL RDW (11.5-15.5) % Plt Count (150-450) k/uL Neutrophils # (1.3-7.7) k/uL Lymphocytes # (1.0-4.8) k/uL Monocytes # (0-1.0) k/uL PT 13.4 H (9.0-12.0) sec INR 1.3 H (<1.2) APTT 107.7 H* (22.0-30.0) sec Potassium (3.5-5.1) mmol/L Chloride (98-107) mmol/L Carbon Dioxide (22-30) mmol/L BUN (9-20) mg/dL Creatinine (0.66-1.25) mg/dL Glucose (74-99) mg/dL POC Glucose (mg/dL) (75-99) mg/dL Plasma Lactic Acid Matt 4.3 H* (0.7-2.0) mmol/L Calcium (8.4-10.2) mg/dL Magnesium (1.6-2.3) mg/dL AST (17-59) U/L ALT (4-49) U/L Troponin I (0.000-0.034) ng/mL Total Protein (6.3-8.2) g/dL Albumin (3.5-5.0) g/dL Urine Protein (Negative) Coronavirus (PCR) (Not Detectd) 07/27/21 07/27/21 07/27/21 Range/Units 04:03 04:03 05:48 WBC 16.0 H (3.8-10.6) k/uL RBC (4.30-5.90) m/uL Hgb (13.0-17.5) gm/dL Hct 53.9 H (39.0-53.0) % MCHC 30.9 L (31.0-37.0) g/dL RDW 15.8 H (11.5-15.5) % Plt Count 149 L (150-450) k/uL Neutrophils # 14.4 H (1.3-7.7) k/uL Lymphocytes # 0.5 L (1.0-4.8) k/uL Monocytes # (0-1.0) k/uL PT (9.0-12.0) sec INR (<1.2) APTT (22.0-30.0) sec Potassium (3.5-5.1) mmol/L Chloride (98-107) mmol/L Carbon Dioxide (22-30) mmol/L BUN (9-20) mg/dL Creatinine (0.66-1.25) mg/dL Glucose (74-99) mg/dL POC Glucose (mg/dL) 259 H (75-99) mg/dL Plasma Lactic Acid Matt 2.7 H* (0.7-2.0) mmol/L Calcium (8.4-10.2) mg/dL Magnesium (1.6-2.3) mg/dL AST (17-59) U/L ALT (4-49) U/L Troponin I (0.000-0.034) ng/mL Total Protein (6.3-8.2) g/dL Albumin (3.5-5.0) g/dL Urine Protein (Negative) Coronavirus (PCR) (Not Detectd) 07/27/21 07/27/21 07/27/21 Range/Units 07:17 07:17 10:00 WBC (3.8-10.6) k/uL RBC (4.30-5.90) m/uL Hgb (13.0-17.5) gm/dL Hct (39.0-53.0) % MCHC (31.0-37.0) g/dL RDW (11.5-15.5) % Plt Count (150-450) k/uL Neutrophils # (1.3-7.7) k/uL Lymphocytes # (1.0-4.8) k/uL Monocytes # (0-1.0) k/uL PT (9.0-12.0) sec INR (<1.2) APTT 81.0 H (22.0-30.0) sec Potassium 6.0 H (3.5-5.1) mmol/L Chloride 111 H (98-107) mmol/L Carbon Dioxide 15 L (22-30) mmol/L BUN 84 H (9-20) mg/dL Creatinine 5.82 H (0.66-1.25) mg/dL Glucose 130 H (74-99) mg/dL POC Glucose (mg/dL) (75-99) mg/dL Plasma Lactic Acid Matt 2.4 H* (0.7-2.0) mmol/L Calcium 7.7 L (8.4-10.2) mg/dL Magnesium (1.6-2.3) mg/dL AST 669 H (17-59) U/L ALT 90 H (4-49) U/L Troponin I (0.000-0.034) ng/mL Total Protein 6.1 L (6.3-8.2) g/dL Albumin 2.9 L (3.5-5.0) g/dL Urine Protein (Negative) Coronavirus (PCR) (Not Detectd) 07/27/21 Range/Units 11:40 WBC (3.8-10.6) k/uL RBC (4.30-5.90) m/uL Hgb (13.0-17.5) gm/dL Hct (39.0-53.0) % MCHC (31.0-37.0) g/dL RDW (11.5-15.5) % Plt Count (150-450) k/uL Neutrophils # (1.3-7.7) k/uL Lymphocytes # (1.0-4.8) k/uL Monocytes # (0-1.0) k/uL PT (9.0-12.0) sec INR (<1.2) APTT (22.0-30.0) sec Potassium (3.5-5.1) mmol/L Chloride (98-107) mmol/L Carbon Dioxide (22-30) mmol/L BUN (9-20) mg/dL Creatinine (0.66-1.25) mg/dL Glucose (74-99) mg/dL POC Glucose (mg/dL) 106 H (75-99) mg/dL Plasma Lactic Acid Matt (0.7-2.0) mmol/L Calcium (8.4-10.2) mg/dL Magnesium (1.6-2.3) mg/dL AST (17-59) U/L ALT (4-49) U/L Troponin I (0.000-0.034) ng/mL Total Protein (6.3-8.2) g/dL Albumin (3.5-5.0) g/dL Urine Protein (Negative) Coronavirus (PCR) (Not Detectd) Microbiology - Last 24 Hours (Table) 07/26/21 16:00 Blood Culture - Final Blood 07/26/21 16:15 Blood Culture Gram Stain - Preliminary Blood 07/26/21 16:15 Blood Culture - Final Blood Assessment and Plan (1) Bacteremia Current Visit: Yes Status: Acute Code(s): R78.81 - BACTEREMIA SNOMED Code(s): 7684193 (2) COVID-19 Current Visit: Yes Status: Acute Code(s): U07.1 - COVID-19 SNOMED Code(s): 319533259 Plan: 1patient presented to hospital with increasing shortness of breath hypoxemia this patient has been diagnosed with COVID-19 on 07/14/2021 that is more than 2 weeks ago now with evidence of bilateral infiltrate concerning for possible secondary bacterial pneumonia however the patient also have evidence of acute renal failure and possible component of fluid overload responsible for some of his symptoms. 2renal insufficiency and high risk of nephrotoxicity. 3blood cultures with staph epi and strep, staph epi is more likely contaminated ID on the strep is currently pending. 4discontinue vancomycin. 5we will add Rocephin 2 g daily for possible pneumonia. We will follow on clinical condition and cultures to further adjust medication if needed Thank you for this consultation will follow this patient along with you
[2021-07-28] MEDS: SODIUM CHLORIDE 0.45% 1,000 ML with SODIUM BICARB (1 MEQ/ML) 100 ML IV SCH ×2 (01:27)
[2021-07-28 06:00] LABS: Glucose,Whole Blood 112 mg/dL (75-99)
[2021-07-28] MEDS: INSULIN ASPART (NovoLOG) 100 UNIT/ML VIAL SQ SCH (07:14)
[2021-07-28 08:51] LABS: Basophils # (A) 0.1 k/uL (0-0.2); Basophils % (A) 0 %; Eosinophils # (A) 0.1 k/uL (0-0.7); Eosinophils % (A) 0 %; HCT 47.9 % (39.0-53.0); HGB 14.7 gm/dL (13.0-17.5); Hypochromasia Slight; Lymphocytes # (A) 0.5 k/uL (1.0-4.8); Lymphocytes % (A) 3 %; MCH 27.7 pg (25.0-35.0); MCHC 30.7 g/dL (31.0-37.0); MCV 90.4 fL (80.0-100.0); Mean Platelet Volume 10.3; Monocytes # (A) 1.4 k/uL (0-1.0); Monocytes % (A) 8 %; Neutrophils # (A) 16.9 k/uL (1.3-7.7); Neutrophils % (A) 89 %; Platelet Count 163 k/uL (150-450); RDW 15.5 % (11.5-15.5)
[2021-07-28] MEDS ORDERED: VANCOMYCIN 1,500 MG in SODIUM CHLORIDE 0.9% 250 ML IVPB ONE (09:00)
[2021-07-28 09:08] LABS: Albumin 2.5 g/dL (3.5-5.0); Calcium 7.6 mg/dL (8.4-10.2); Potassium 5.2 mmol/L (3.5-5.1); Total Bilirubin 0.8 mg/dL (0.2-1.3); Total Protein 5.3 g/dL (6.3-8.2)
[2021-07-28] MEDS: DEXAMETHASONE SOD PHOSPHATE 10 MG/ML 1 ML VIAL IVP SCH (09:34)
[2021-07-28] MEDS ORDERED: DEXTROSE 5% IN WATER 1,000 ML with SODIUM BICARB (1 MEQ/ML) 150 ML IV SCH (11:00)
[2021-07-28 12:04] LABS: Glucose,Whole Blood 97 mg/dL (75-99)
--- NOTE | 2021-07-28 12:42 | CDI ---
Documentation Clarification Form Date: 07/28/2021 12:14:34 PM From: Karrie Boss RN CCDS Admit Date: 07/26/2021 05:30:00 PM Patient Name: Donell Agustin Visit Number: [id number] Discharge Date: ATTENTION: The Clinical Documentation Specialists (CDI) and [facility] Coding Staff appreciate your assistance in clarifying documentation. Please respond to the clarification below the line at the bottom and electronically sign. The CDI & [facility] Coding staff will review the response and follow-up if needed. Please note: Queries are made part of the Legal Health Record. If you have any questions, please contact the author of this message via ITS. Dr. Natanael Lyn Your patient has the documented symptom of Confused 07/26, ED note. Additional clarification regarding the etiology/cause of this symptom is requested. History/Risk Factors: 86-year-old male presents to the ED via EMS for worsening Hypoxia and increased confusion. Medical History: Diagnosed with COVID 19 07/14; Decubitus Ulcer; HTN and Memory Impairment. 07/28, H&P. Clinical Indicators: VSS 07/26: B/P 73/49; HR 134; Temp 97.5F Axillary; RR 28; SpO2 84% 15L nonrebreather LABS 07/26: Wbc 15.3; Hgb 18.3; Neutrophils 12.8; K 5.8; Carbon Dioxide 14; BUN 76; CR 5.25; Glucose 133; Lactic acid 5.1; Magnesium 2.5; AST 411; ALT 62; Troponin 0.075; BNP 4330; Marcos Virus Detected. Blood culture: Coagulase Negative Staph; Staphylococcus Epidermidis Alpha Hemolytic Streptococcus. Treatment: 07/26 Azithromycin 500mg IVPB x 1; 07/26 Rocephin 1, 000mg IVP x 1; 07/27 current Ceftriaxone 2gm IVPB Q24HR; 07/27 Vancomycin 1,500mg IVPB X 1; 07/28 Vancomycin 1,500mg IVPB x ; 07/26 0.9NS 1.5L bolus; 07/27 07/28 Sodium bicarb 100ml iv Q11H. [ ] Metabolic Encephalopathy due to Infection and hypoxia [ ] Other condition (please specify) [ ] Unable to determine (Template Last Revised: May 2020) MTDD
--- NOTE | 2021-07-28 13:20 | P.PN ---
Subjective Progress Note Date: 07/28/21 CHIEF COMPLAINT: A. fib with RVR HISTORY OF PRESENT ILLNESS: This is a 86-year-old male with a past medical history significant for hypertension and hyperlipidemia. 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 We have been asked to see the patient in consultation for A. fib with RVR. Patient examined at the bedside. The patient was brought to the hospital from an ECF secondary to increased confusion and hypoxia. The patient was found to be in A. fib with RVR. It does not appear that the patient has a history of atrial fibrillation. The patient was started on IV heparin and IV Cardizem. Per nursing, the patient is unable to take oral medications. * EKG reveals A. fib with RVR * Chest xray right-sided rib fractures of indeterminate acuity. Bibasilar atelectasis, difficult to exclude pneumonia. * Laboratory data: WBC 16.0. Hemoglobin 16.6. Platelet count 149. Sodium 142. Potassium 6.0. BUN 84. Creatinine 5.82. Troponin 0.075. ProBNP 4330. * Current home cardiac medications include lisinopril 20 mg daily and atorvastatin 10 mg daily 07/28/2021 Patient remains hospitalized on 3S. Telemetry reveals atrial fibrillation with controlled ventricular rate. IV Cardizem has been discontinued. He remains on IV heparin. PHYSICAL EXAM: Thorough physical exam not completed secondary to limited evaluation/examination due to Covid19 ASSESSMENT: Altered mental status Covid 19 Abnormal troponin, likely secondary to above Acute hypoxic respiratory failure Atrial fibrillation with RVR, appears to be new onset Hyperkalemia Acute renal failure Transaminitis Hypertension Hyperlipidemia PLAN: Continue IV heparin. If patients condition improves and he is able to tolerate oral medications would recommend transitioning to Eliquis and metoprolol. Continue telemetry monitoring. Patients prognosis appears very poor. Recommend hospice care.We will sign off. Please reconsult if needed Nurse practitioner note has been reviewed by physician. Signing provider agrees with the documented findings, assessment, and plan of care. Objective - Vital Signs Vital signs: Vital Signs Temp 97.5 F L 07/28/21 08:00 Pulse 96 07/28/21 08:00 Resp 18 07/28/21 08:00 BP 112/63 07/28/21 08:00 Pulse Ox 96 07/28/21 08:00 Intake & Output 07/27/21 07/28/21 07/28/21 18:59 06:59 18:59 Intake Total 171.669 119.145 Output Total 0 0 200 Balance 171.669 119.145 -200 Intake: Intake, IV Titration 166.669 69.145 Amount Diltiazem 125 mg In 118.500 Sodium Chloride 0.9% 100 ml @ 5 MG/HR 5 mls/hr IV .Q24H [facility] Rx#:[id number] Heparin Sod,Pork in 0.45% 48.169 69.145 NaCl 25,000 unit In 0.45 % NaCl 1 250ml.bag @ 11. 025 UNITS/KG/HR 10.002 mls/hr IV .Q24H [facility] Rx#: [id number] Oral 5 50 Output: Urine 0 0 200 Stool 0 0 Other: Voiding Method Diaper Diaper Diaper Incontinent Incontinent Incontinent # Bowel Movements 1 1 - Labs CBC & Chem 7: 07/28/21 08:21 07/28/21 08:21 Labs: Abnormal Lab Results - Last 24 Hours (Table) 07/27/21 07/27/21 07/28/21 Range/Units 16:24 17:45 05:53 WBC (3.8-10.6) k/uL MCHC (31.0-37.0) g/dL Neutrophils # (1.3-7.7) k/uL Lymphocytes # (1.0-4.8) k/uL Monocytes # (0-1.0) k/uL APTT 48.3 H (22.0-30.0) sec Potassium (3.5-5.1) mmol/L Chloride (98-107) mmol/L Carbon Dioxide (22-30) mmol/L BUN (9-20) mg/dL Creatinine (0.66-1.25) mg/dL Glucose (74-99) mg/dL POC Glucose (mg/dL) 106 H 112 H (75-99) mg/dL Calcium (8.4-10.2) mg/dL AST (17-59) U/L ALT (4-49) U/L Total Protein (6.3-8.2) g/dL Albumin (3.5-5.0) g/dL 07/28/21 07/28/21 07/28/21 Range/Units 08:21 08:21 08:21 WBC 19.0 H (3.8-10.6) k/uL MCHC 30.7 L (31.0-37.0) g/dL Neutrophils # 16.9 H (1.3-7.7) k/uL Lymphocytes # 0.5 L (1.0-4.8) k/uL Monocytes # 1.4 H (0-1.0) k/uL APTT 33.2 H (22.0-30.0) sec Potassium 5.2 H (3.5-5.1) mmol/L Chloride 112 H (98-107) mmol/L Carbon Dioxide 16 L (22-30) mmol/L BUN 103 H* (9-20) mg/dL Creatinine 6.65 H (0.66-1.25) mg/dL Glucose 105 H (74-99) mg/dL POC Glucose (mg/dL) (75-99) mg/dL Calcium 7.6 L (8.4-10.2) mg/dL AST 405 H (17-59) U/L ALT 85 H (4-49) U/L Total Protein 5.3 L (6.3-8.2) g/dL Albumin 2.5 L (3.5-5.0) g/dL Microbiology - Last 24 Hours (Table) 07/26/21 16:00 Blood Culture Gram Stain - Preliminary Blood Blood Culture - Preliminary Coagulase Negative Staph 07/26/21 16:15 Blood Culture Gram Stain - Preliminary Blood Blood Culture - Preliminary Staphylococcus epidermidis Alpha Hemolytic Streptococcus 07/26/21 16:00 Blood Culture - Final Blood
[2021-07-28 13:22] VITALS: BMI 27.1
--- NOTE | 2021-07-28 14:16 | P.PN ---
Subjective Progress Note Date: 07/28/21 Principal diagnosis: Respiratory failure. This is a 86-year-old male patient who resides in a extended care facility and had been diagnosed with coronavirus back on 07/14/2021. He is currently nonverbal. Poor historian. Unable to obtain any information from the patient. His a history of dementia, hypertension, hyperlipidemia. He is brought into the emergency room yesterday. Chest x-ray revealed right-sided rib fractures of indeterminate acuity. Bibasilar atelectasis. EKG revealed atrial fibrillation with a rapid ventricular response. He's been initiated on a Cardizem drip at 5 mg per hour. Heparin drip. He is seen today in consultation on the selective care unit. Nursing staff is at the bedside. He is currently requiring 10 L high flow nasal cannula to maintain O2 saturations in the 90s. He has a significant coccyx ulceration. Blood cultures preliminary positive for gram- positive cocci in chains. White count 16.0. Hemoglobin 16.6. INR 1.3. Sodium 140. Potassium 6.0. Bicarb 15. BUN 84. Creatinine 5.82. Lactic acid 2.4. AST 669. ALT 90. Troponin 0.075. Coronavirus by PCR positive. Influenza screen negative. Urinalysis clean. He's been afebrile. Hemodynamically stable. He's been initiated on vancomycin. Progress note dated 07/28/2021. 86-year-old male seen in consultation yesterday. Please see the note above. The patient is a DO NOT RESUSCITATE patient. The patient's renal function is getting worse. Apparently the leather drier was going to talk to the family about not initiating hemodialysis. White count is 19, hemoglobin 14.7, hematocrit 47.9, and platelet count 163,000. PTT is 33.2. Sodium 141, potassium 5.2, chlorides 112, CO2 16, BUN 103, and creatinine 6.65. AST was 405 and ALT was 85. Blood cultures were positive for staph epidermidis and alpha- hemolytic streptococcus. Currently, the patient is on Rocephin. Objective - Vital Signs Vital signs: Vital Signs Temp 97.5 F L 07/28/21 08:00 Pulse 96 07/28/21 08:00 Resp 18 07/28/21 08:00 BP 112/63 07/28/21 08:00 Pulse Ox 96 07/28/21 08:00 Intake & Output 07/27/21 07/28/21 07/28/21 18:59 06:59 18:59 Intake Total 171.669 119.145 Output Total 0 0 200 Balance 171.669 119.145 -200 Weight 90.718 kg Intake: Intake, IV Titration 166.669 69.145 Amount Diltiazem 125 mg In 118.500 Sodium Chloride 0.9% 100 ml @ 5 MG/HR 5 mls/hr IV .Q24H [facility] Rx#:[id number] Heparin Sod,Pork in 0.45% 48.169 69.145 NaCl 25,000 unit In 0.45 % NaCl 1 250ml.bag @ 11. 025 UNITS/KG/HR 10.002 mls/hr IV .Q24H [facility] Rx#: [id number] Oral 5 50 Output: Urine 0 0 200 Stool 0 0 Other: Voiding Method Diaper Diaper Diaper Incontinent Incontinent Incontinent # Bowel Movements 1 1 - Exam No acute distress, lethargic, on 8 L high flow oxygen, with saturations of 96%. HEENT examination is grossly unremarkable. Neck supple. Full range of motion. No adenopathy thyromegaly or neck vein distention. Cardiovascular examination reveals regular rhythm rate. S1-S2 normal. No S3 or S4. No discernible murmur noted. Heart sounds are distant. Heart rate 96 bpm. Lungs reveal scattered bilateral rhonchi. Breath sounds equal. Scattered crackles. No wheezes. Abdomen soft bowel sounds are heard. No masses or tenderness. Extremities are intact. No cyanosis clubbing or edema. Skin is without rash or lesion. Neurologic examination is brief but nonfocal. - Labs CBC & Chem 7: 07/28/21 08:21 07/28/21 08:21 Labs: Abnormal Lab Results - Last 24 Hours (Table) 07/27/21 07/27/21 07/28/21 Range/Units 16:24 17:45 05:53 WBC (3.8-10.6) k/uL MCHC (31.0-37.0) g/dL Neutrophils # (1.3-7.7) k/uL Lymphocytes # (1.0-4.8) k/uL Monocytes # (0-1.0) k/uL APTT 48.3 H (22.0-30.0) sec Potassium (3.5-5.1) mmol/L Chloride (98-107) mmol/L Carbon Dioxide (22-30) mmol/L BUN (9-20) mg/dL Creatinine (0.66-1.25) mg/dL Glucose (74-99) mg/dL POC Glucose (mg/dL) 106 H 112 H (75-99) mg/dL Calcium (8.4-10.2) mg/dL AST (17-59) U/L ALT (4-49) U/L Total Protein (6.3-8.2) g/dL Albumin (3.5-5.0) g/dL 07/28/21 07/28/21 07/28/21 Range/Units 08:21 08:21 08:21 WBC 19.0 H (3.8-10.6) k/uL MCHC 30.7 L (31.0-37.0) g/dL Neutrophils # 16.9 H (1.3-7.7) k/uL Lymphocytes # 0.5 L (1.0-4.8) k/uL Monocytes # 1.4 H (0-1.0) k/uL APTT 33.2 H (22.0-30.0) sec Potassium 5.2 H (3.5-5.1) mmol/L Chloride 112 H (98-107) mmol/L Carbon Dioxide 16 L (22-30) mmol/L BUN 103 H* (9-20) mg/dL Creatinine 6.65 H (0.66-1.25) mg/dL Glucose 105 H (74-99) mg/dL POC Glucose (mg/dL) (75-99) mg/dL Calcium 7.6 L (8.4-10.2) mg/dL AST 405 H (17-59) U/L ALT 85 H (4-49) U/L Total Protein 5.3 L (6.3-8.2) g/dL Albumin 2.5 L (3.5-5.0) g/dL Microbiology - Last 24 Hours (Table) 07/27/21 11:46 Blood Culture - Preliminary Blood No Growth after 24 hours 07/26/21 16:00 Blood Culture Gram Stain - Preliminary Blood Blood Culture - Preliminary Coagulase Negative Staph 07/26/21 16:15 Blood Culture Gram Stain - Preliminary Blood Blood Culture - Preliminary Staphylococcus epidermidis Alpha Hemolytic Streptococcus 07/26/21 16:00 Blood Culture - Final Blood Assessment and Plan Assessment: 1 Acute hypoxemic respiratory failure secondary to COVID-19 pneumonia with patchy basilar densities. Initial diagnosis on 07/14/2021. 2 Right-sided rib fractures of indeterminate acuity. 3 Sepsis secondary to for hemolytic streptococci. 4 Transaminitis secondary to above. 4 Acute on chronic renal failure. 5 Deep tissue ulceration of the coccyx. 6 Dementia, nonverbal. 7 Atrial fibrillation with a rapid ventricular response currently on a Cardizem drip and IV heparin. 8 Hyperkalemia. Plan: Plan dated 07/28/2021. Currently, the patient is on IV heparin, and the sodium bicarb drip. He has 3 bicarbonate in half-normal saline at 100 mL an hour. He is being followed by the leather drier. The patient's renal function is worsened. The patient is a DO NOT RESUSCITATE patient. We will continue to follow make recommendations were appropriate. Labs, x-rays, and medications are reviewed. Prognosis is certainly very guarded. Time with Patient: Less than 30
--- NOTE | 2021-07-28 14:33 | P.GSCN ---
History of Present Illness Consult date: 07/28/21 History of present illness: CHIEF COMPLAINT: Hypoxia and increased confusion Surgical consult for possible sacral debridement HISTORY OF PRESENT ILLNESS: This is a 86-year-old male with a known history of dementia currently at a longterm. He was originally diagnosed with covid on 07/14/21. He presented with hypoxia. Patient also had evidence of atrial fibrillation with rapid ventricular response and acute kidney injury. He does have positive blood culture. Patient followed by cardiology and pulmonary services. Patient also has evidence of sepsis. Patient's CODE STATUS is no code. He is currently on IV heparin, and sodium bicarb drip. Nephrology appar ently discuss with patient's family about possible hemodialysis. Patient's CODE STATUS is a no code. Hospice has been consulted. They're currently awaiting family's decision regarding possible hospice care. Patient has been afebrile. But he has been requiring high flow oxygen 8 L 96%. Patient seen and examined with Dr. ontiveros PAST MEDICAL HISTORY: Hypertension, Memory Impairment, Pneumonia PAST SURGICAL HISTORY: See list. MEDICATIONS: See list. ALLERGIES: See list. SOCIAL HISTORY: No illicit drug use. REVIEW OF SYSTEMS: CONSTITUTIONAL: Denies fever or chills. HEENT: Denies blurred vision, vision changes, or eye pain. Denies hemoptysis CARDIOVASCULAR: Denies chest pain or pressure. RESPIRATORY: No shortness of breath. GASTROINTESTINAL: See HPI for pertinent findings HEMATOLOGIC: Denies bleeding disorders. GENITOURINARY: Denies any blood in urine or increased urinary frequency. SKIN: Denies pruitis. Denies rash. PHYSICAL EXAM: VITAL SIGNS: Reviewed GENERAL: no acute distress. HEENT: No sclera icterus. Extraocular movements grossly intact. Moist buccal mucosa. Head is atraumatic, normocephalic. No nasal drainage. ABDOMEN: Soft. Nondistended. Nondistended NEUROLOGIC: Sleeping Skin: Photograph evaluated of buttocks shows unstageable pressure ulcer to the sacral area with black tissue LABORATORY DATA: WBC trending up from 16-19 hemoglobin 14.7 platelets 163 Sodium 141 potassium 5.2 creatinine trending upwards at 6.65 BUN 103 Total bilirubin 0.8 AST 405 ALT 85 Blood culture positive with Staphylococcus epidermidis and alpha hemolytic Streptococcus IMAGING: ASSESSMENT: 1. Unstageable sacral decubitus pressure ulcer 2. Sepsis 3. Bacteremia PLAN: -Debridement of the sacral decubitus ulcer was offered. Family has declined the debridement. They are discussing the option of hospice care. Physician Morgue Keeper note has been reviewed by physician. Signing provider agrees with the documented findings, assessment, and plan of care. 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 Past Drug Use History: Unable to Obtain Medications and Allergies Home Medications Medication Instructions Recorded Confirmed Type Acetaminophen [Tylenol 8 Hour] 650 mg PO Q6H PRN 07/26/21 07/26/21 History Albuterol Sulfate [Ventolin HFA] 2 puff INHALATION RT-Q6H PRN 07/26/21 07/26/21 History Ascorbic Acid [Vitamin C] 1,000 mg PO DAILY 07/26/21 07/26/21 History Atorvastatin [Lipitor] 10 mg PO HS@2000 07/26/21 07/26/21 History Eleanor-Tussin 10 ml PO Q6H PRN 07/26/21 07/26/21 History Lidocaine 5% Patch [Lidoderm] 1 patch TOPICAL DAILY 07/26/21 07/26/21 History Loperamide [Imodium] 4 mg PO QID PRN 07/26/21 07/26/21 History lisinopriL [Zestril] 20 mg PO DAILY 07/26/21 07/26/21 History methocarbamoL [Robaxin] 750 mg PO Q8H PRN 07/26/21 07/26/21 History Allergies Allergy/AdvReac Type Severity Reaction Status Date / Time No Known Allergies Allergy Unverified 07/26/21 16:13 Surgical - Exam Vital Signs Temp Pulse Resp BP 97.5 F L 138 H 22 72/47 07/26/21 15:55 07/26/21 15:55 07/26/21 15:55 07/26/21 15:55 Results - Labs 07/28/21 08:21 07/28/21 08:21 Abnormal Lab Results - Last 24 Hours (Table) 07/27/21 07/27/21 07/28/21 Range/Units 16:24 17:45 05:53 WBC (3.8-10.6) k/uL MCHC (31.0-37.0) g/dL Neutrophils # (1.3-7.7) k/uL Lymphocytes # (1.0-4.8) k/uL Monocytes # (0-1.0) k/uL APTT 48.3 H (22.0-30.0) sec Potassium (3.5-5.1) mmol/L Chloride (98-107) mmol/L Carbon Dioxide (22-30) mmol/L BUN (9-20) mg/dL Creatinine (0.66-1.25) mg/dL Glucose (74-99) mg/dL POC Glucose (mg/dL) 106 H 112 H (75-99) mg/dL Calcium (8.4-10.2) mg/dL AST (17-59) U/L ALT (4-49) U/L Total Protein (6.3-8.2) g/dL Albumin (3.5-5.0) g/dL 07/28/21 07/28/21 07/28/21 Range/Units 08:21 08:21 08:21 WBC 19.0 H (3.8-10.6) k/uL MCHC 30.7 L (31.0-37.0) g/dL Neutrophils # 16.9 H (1.3-7.7) k/uL Lymphocytes # 0.5 L (1.0-4.8) k/uL Monocytes # 1.4 H (0-1.0) k/uL APTT 33.2 H (22.0-30.0) sec Potassium 5.2 H (3.5-5.1) mmol/L Chloride 112 H (98-107) mmol/L Carbon Dioxide 16 L (22-30) mmol/L BUN 103 H* (9-20) mg/dL Creatinine 6.65 H (0.66-1.25) mg/dL Glucose 105 H (74-99) mg/dL POC Glucose (mg/dL) (75-99) mg/dL Calcium 7.6 L (8.4-10.2) mg/dL AST 405 H (17-59) U/L ALT 85 H (4-49) U/L Total Protein 5.3 L (6.3-8.2) g/dL Albumin 2.5 L (3.5-5.0) g/dL Microbiology - Last 24 Hours (Table) 07/26/21 16:00 Blood Culture Gram Stain - Preliminary Blood Blood Culture - Preliminary Coagulase Negative Staph 07/26/21 16:15 Blood Culture Gram Stain - Preliminary Blood Blood Culture - Preliminary Staphylococcus epidermidis Alpha Hemolytic Streptococcus 07/26/21 16:00 Blood Culture - Final Blood Diabetes panel 07/28/21 Range/Units 08:21 Sodium 141 (137-145) mmol/L Potassium 5.2 H (3.5-5.1) mmol/L Chloride 112 H (98-107) mmol/L Carbon Dioxide 16 L (22-30) mmol/L BUN 103 H* (9-20) mg/dL Creatinine 6.65 H (0.66-1.25) mg/dL Glucose 105 H (74-99) mg/dL Calcium 7.6 L (8.4-10.2) mg/dL AST 405 H (17-59) U/L ALT 85 H (4-49) U/L Alkaline Phosphatase 66 (38-126) U/L Total Protein 5.3 L (6.3-8.2) g/dL Albumin 2.5 L (3.5-5.0) g/dL Calcium panel 07/28/21 Range/Units 08:21 Calcium 7.6 L (8.4-10.2) mg/dL Albumin 2.5 L (3.5-5.0) g/dL Pituitary panel 07/28/21 Range/Units 08:21 Sodium 141 (137-145) mmol/L Potassium 5.2 H (3.5-5.1) mmol/L Chloride 112 H (98-107) mmol/L Carbon Dioxide 16 L (22-30) mmol/L BUN 103 H* (9-20) mg/dL Creatinine 6.65 H (0.66-1.25) mg/dL Glucose 105 H (74-99) mg/dL Calcium 7.6 L (8.4-10.2) mg/dL Adrenal panel 07/28/21 Range/Units 08:21 Sodium 141 (137-145) mmol/L Potassium 5.2 H (3.5-5.1) mmol/L Chloride 112 H (98-107) mmol/L Carbon Dioxide 16 L (22-30) mmol/L BUN 103 H* (9-20) mg/dL Creatinine 6.65 H (0.66-1.25) mg/dL Glucose 105 H (74-99) mg/dL Calcium 7.6 L (8.4-10.2) mg/dL Total Bilirubin 0.8 (0.2-1.3) mg/dL AST 405 H (17-59) U/L ALT 85 H (4-49) U/L Alkaline Phosphatase 66 (38-126) U/L Total Protein 5.3 L (6.3-8.2) g/dL Albumin 2.5 L (3.5-5.0) g/dL
[2021-07-28 14:58] VITALS: BP 96/61; PULSE 90; RESP 96; TEMP 96.8
--- NOTE | 2021-07-28 17:30 | P.PN ---
Subjective Patient is seen for follow-up for acute kidney injury. His renal function has worsened. Patient has had no urine output. He is maintained on bicarb drip. CODE STATUS will need to be discussed further with family as patient will need renal replacement therapy if aggressive medical care is to be continued. Objective - Vital Signs Vital signs: Vital Signs Temp 96.8 F L 07/28/21 12:00 Pulse 90 07/28/21 14:00 Resp 96 H 07/28/21 14:00 BP 96/61 07/28/21 12:00 Pulse Ox 96 07/28/21 12:00 Intake & Output 07/27/21 07/28/21 07/28/21 18:59 06:59 18:59 Intake Total 171.669 119.145 Output Total 0 0 200 Balance 171.669 119.145 -200 Weight 90.718 kg Intake: Intake, IV Titration 166.669 69.145 Amount Diltiazem 125 mg In 118.500 Sodium Chloride 0.9% 100 ml @ 5 MG/HR 5 mls/hr IV .Q24H [facility] Rx#:[id number] Heparin Sod,Pork in 0.45% 48.169 69.145 NaCl 25,000 unit In 0.45 % NaCl 1 250ml.bag @ 11. 025 UNITS/KG/HR 10.002 mls/hr IV .Q24H [facility] Rx#: [id number] Oral 5 50 Output: Urine 0 0 200 Stool 0 0 Other: Voiding Method Diaper Diaper Diaper Incontinent Incontinent Incontinent # Bowel Movements 1 1 - Exam Awake, comfortable Not in any acute distress Examination of the heart S1 and S2 Exertion lungs bilateral breath sounds are heard Abdomen is soft nontender Exertion lower extremities shows no significant edema Large sacral wound. Currently dressed - Labs CBC & Chem 7: 07/28/21 08:21 07/28/21 08:21 Labs: Abnormal Lab Results - Last 24 Hours (Table) 07/27/21 07/28/21 07/28/21 Range/Units 17:45 05:53 08:21 WBC 19.0 H (3.8-10.6) k/uL MCHC 30.7 L (31.0-37.0) g/dL Neutrophils # 16.9 H (1.3-7.7) k/uL Lymphocytes # 0.5 L (1.0-4.8) k/uL Monocytes # 1.4 H (0-1.0) k/uL APTT 48.3 H (22.0-30.0) sec Potassium (3.5-5.1) mmol/L Chloride (98-107) mmol/L Carbon Dioxide (22-30) mmol/L BUN (9-20) mg/dL Creatinine (0.66-1.25) mg/dL Glucose (74-99) mg/dL POC Glucose (mg/dL) 112 H (75-99) mg/dL Calcium (8.4-10.2) mg/dL AST (17-59) U/L ALT (4-49) U/L Total Protein (6.3-8.2) g/dL Albumin (3.5-5.0) g/dL 07/28/21 07/28/21 Range/Units 08:21 08:21 WBC (3.8-10.6) k/uL MCHC (31.0-37.0) g/dL Neutrophils # (1.3-7.7) k/uL Lymphocytes # (1.0-4.8) k/uL Monocytes # (0-1.0) k/uL APTT 33.2 H (22.0-30.0) sec Potassium 5.2 H (3.5-5.1) mmol/L Chloride 112 H (98-107) mmol/L Carbon Dioxide 16 L (22-30) mmol/L BUN 103 H* (9-20) mg/dL Creatinine 6.65 H (0.66-1.25) mg/dL Glucose 105 H (74-99) mg/dL POC Glucose (mg/dL) (75-99) mg/dL Calcium 7.6 L (8.4-10.2) mg/dL AST 405 H (17-59) U/L ALT 85 H (4-49) U/L Total Protein 5.3 L (6.3-8.2) g/dL Albumin 2.5 L (3.5-5.0) g/dL Microbiology - Last 24 Hours (Table) 07/27/21 11:46 Blood Culture - Preliminary Blood No Growth after 24 hours 07/26/21 16:00 Blood Culture Gram Stain - Preliminary Blood Blood Culture - Preliminary Coagulase Negative Staph 07/26/21 16:15 Blood Culture Gram Stain - Preliminary Blood Blood Culture - Preliminary Staphylococcus epidermidis Alpha Hemolytic Streptococcus Assessment and Plan Assessment: 1. Acute kidney injury most likely ATN, no significant urine retention. Component of hypovolemia also present. UA is completely benign. Renal function is worse. Patient will need hemodialysis if aggressive care is to be continued. 2. Hyperkalemia associated with acute kidney injury and metabolic acidosis 3. Lactic acidosis 4. Hypotension related to sepsis 5. A. fib with RVR maintained on Cardizem drip 6. Sepsis with blood cultures growing gram-positive cocci 7. Large sacral wound 8. Metabolic acidosis associated with acute kidney injury as well as lactic acidosis Plan: Continue IV bicarb We'll discuss with daughter regarding further care including dialysis at
[2021-07-29 04:31] LABS: Hepatitis B Surface Antigen Nonreactive (Nonreactive)
[2021-07-29 08:06] LABS: Hepatitis B Surface AB- Quant 3.5 mIU/mL; Hepatitis B Surface Antibody Nonreactive (Nonreactive)
--- NOTE | 2021-08-04 16:22 | P.PN ---
Subjective Progress Note Date: 07/28/21 Principal diagnosis: Pneumonia and bacteremia Patient is 86-year-old male who was diagnosed with a covid19 on 07/14/2021 subsequent the present with the hospital with increasing shortness of breath in this patient with acute hypoxemia, concerning for possible pneumonia and did have a positive blood culture. On today's evaluation that is 07/28/2021, the patient is afebrile patient is currently breathing comfortably and is down to 8 L nasal cannula patient remained to be sleepy lethargic and unable to provide any history, no vomiting or diarrhea has been reported Objective - Vital Signs Vital signs: Vital Signs Temp 97.5 F L 07/28/21 08:00 Pulse 96 07/28/21 08:00 Resp 18 07/28/21 08:00 BP 112/63 07/28/21 08:00 Pulse Ox 96 07/28/21 08:00 Intake & Output 07/27/21 07/28/21 07/28/21 18:59 06:59 18:59 Intake Total 171.669 119.145 Output Total 0 0 200 Balance 171.669 119.145 -200 Weight 90.718 kg Intake: Intake, IV Titration 166.669 69.145 Amount Diltiazem 125 mg In 118.500 Sodium Chloride 0.9% 100 ml @ 5 MG/HR 5 mls/hr IV .Q24H [facility] Rx#:[id number] Heparin Sod,Pork in 0.45% 48.169 69.145 NaCl 25,000 unit In 0.45 % NaCl 1 250ml.bag @ 11. 025 UNITS/KG/HR 10.002 mls/hr IV .Q24H [facility] Rx#: [id number] Oral 5 50 Output: Urine 0 0 200 Stool 0 0 Other: Voiding Method Diaper Diaper Diaper Incontinent Incontinent Incontinent # Bowel Movements 1 1 - Exam GENERAL DESCRIPTION: An elderly male lying in bed in no distress RESPIRATORY SYSTEM: Unlabored breathing , scattered rhonchi bilaterally HEART: S1 S2 regular rate and rhythm , ABDOMEN: Soft , no tenderness EXTREMITIES: No edema feet - Labs CBC & Chem 7: 07/28/21 08:21 07/28/21 08:21 Labs: Abnormal Lab Results - Last 24 Hours (Table) 07/27/21 07/27/21 07/28/21 Range/Units 16:24 17:45 05:53 WBC (3.8-10.6) k/uL MCHC (31.0-37.0) g/dL Neutrophils # (1.3-7.7) k/uL Lymphocytes # (1.0-4.8) k/uL Monocytes # (0-1.0) k/uL APTT 48.3 H (22.0-30.0) sec Potassium (3.5-5.1) mmol/L Chloride (98-107) mmol/L Carbon Dioxide (22-30) mmol/L BUN (9-20) mg/dL Creatinine (0.66-1.25) mg/dL Glucose (74-99) mg/dL POC Glucose (mg/dL) 106 H 112 H (75-99) mg/dL Calcium (8.4-10.2) mg/dL AST (17-59) U/L ALT (4-49) U/L Total Protein (6.3-8.2) g/dL Albumin (3.5-5.0) g/dL 07/28/21 07/28/21 07/28/21 Range/Units 08:21 08:21 08:21 WBC 19.0 H (3.8-10.6) k/uL MCHC 30.7 L (31.0-37.0) g/dL Neutrophils # 16.9 H (1.3-7.7) k/uL Lymphocytes # 0.5 L (1.0-4.8) k/uL Monocytes # 1.4 H (0-1.0) k/uL APTT 33.2 H (22.0-30.0) sec Potassium 5.2 H (3.5-5.1) mmol/L Chloride 112 H (98-107) mmol/L Carbon Dioxide 16 L (22-30) mmol/L BUN 103 H* (9-20) mg/dL Creatinine 6.65 H (0.66-1.25) mg/dL Glucose 105 H (74-99) mg/dL POC Glucose (mg/dL) (75-99) mg/dL Calcium 7.6 L (8.4-10.2) mg/dL AST 405 H (17-59) U/L ALT 85 H (4-49) U/L Total Protein 5.3 L (6.3-8.2) g/dL Albumin 2.5 L (3.5-5.0) g/dL Microbiology - Last 24 Hours (Table) 07/27/21 11:46 Blood Culture - Preliminary Blood No Growth after 24 hours 07/26/21 16:00 Blood Culture Gram Stain - Preliminary Blood Blood Culture - Preliminary Coagulase Negative Staph 07/26/21 16:15 Blood Culture Gram Stain - Preliminary Blood Blood Culture - Preliminary Staphylococcus epidermidis Alpha Hemolytic Streptococcus 07/26/21 16:00 Blood Culture - Final Blood Assessment and Plan (1) Bacteremia Status: Acute Code(s): R78.81 - BACTEREMIA SNOMED Code(s): 0463215 (2) COVID-19 Status: Acute Code(s): U07.1 - COVID-19 SNOMED Code(s): 989030340 Plan: 1patient presented to hospital with increasing shortness of breath hypoxemia this patient has been diagnosed with COVID-19 on 07/14/2021 that is more than 2 weeks ago now with evidence of bilateral infiltrate concerning for possible secondary bacterial pneumonia however the patient also have evidence of acute renal failure and possible component of fluid overload responsible for some of his symptoms. 2renal insufficiency and high risk of nephrotoxicity. 3blood cultures with staph epi and strep, staph epi is more likely contamination repeat blood culture negative so far. 4patient to continue with Rocephin 2 g daily for possible pneumonia. Per the nursing staff possible plan for hospice which may be appropriate for him, antibiotic can be discontinued Time with Patient: Less than 30
--- NOTE | 2021-08-05 13:13 | PN ---
PROGRESS NOTE ADDENDUM: Metabolic encephalopathy. MMODL / IJN: [id number] /
== END 2021-07-28 15:33 | disposition hospice, inpatient (51) | DRG 871 ==
LOC: EC 15:52 → 3SCARD 17:30
PROVIDERS: ADMIT Family Medicine; ATTEND Family Medicine
DX: A41.9 Sepsis, unspecified organism (principal); U07.1 COVID-19; N17.0 Acute kidney failure with tubular necrosis; J12.82 Pneumonia due to coronavirus disease 2019; J96.01 Acute respiratory failure with hypoxia; G93.41 Metabolic encephalopathy; S22.41XA Multiple fractures of ribs, right side, initial encounter for closed fracture; R57.9 Shock, unspecified; E87.2 Acidosis; J98.11 Atelectasis; A41.89 Other specified sepsis; E78.5 Hyperlipidemia, unspecified; L89.150 Pressure ulcer of sacral region, unstageable; I48.91 Unspecified atrial fibrillation; R77.8 Other specified abnormalities of plasma proteins; N18.9 Chronic kidney disease, unspecified; I12.9 Hypertensive chronic kidney disease with stage 1 through stage 4 chronic kidney disease, or unspecified chronic kidney disease; E87.5 Hyperkalemia; F03.90 Unspecified dementia, unspecified severity, without behavioral disturbance, psychotic disturbance, mood disturbance, and anxiety; R74.01 Elevation of levels of liver transaminase levels; Z66 Do not resuscitate; E86.1 Hypovolemia; R32 Unspecified urinary incontinence; Z79.899 Other long term (current) drug therapy; Z87.891 Personal history of nicotine dependence
CPT/HCPCS: 36415; 71045; 76770; 80053; 81003; 83605; 83735; 83880; 84132; 84484; 85025; 85610; 85730; 86704; 86706; 87040; 87340; 87502; 87635; 93005; 94640; 94760; 96361; 96365; 96366; 96367; 96375; 99291

== ENCOUNTER 2021-07-28 14:56 | Inpatient (IN) | payer MEDICAID ==
[2021-07-28] MEDS ORDERED: ONDANSETRON 4 MG/2 ML VIAL IVP PRN (14:57)
[2021-07-28] MEDS ORDERED: ACETAMINOPHEN SUPPOSITORY 650 MG SUPP RECTAL PRN (14:57)
[2021-07-28] MEDS ORDERED: LORazepam 2 MG/ML INJ IV PRN (14:57)
[2021-07-28] MEDS ORDERED: HALOPERIDOL LACTATE 5 MG/ML 1 ML VIAL IM PRN (14:57)
[2021-07-28] MEDS ORDERED: GLYCOPYRROLATE 0.2 MG/ML 2 ML VIAL IVP PRN (14:57)
[2021-07-28] MEDS ORDERED: ATROPINE OPHTH SOLN 1% 5ML BTL SUBLINGUAL PRN (14:57)
[2021-07-28] MEDS ORDERED: SCOPOLAMINE 1 MG/72 HR PATCH TRANSDERM SCH (15:00)
[2021-07-28 22:05] VITALS: BP 110/70
[2021-07-29] MEDS: MORPHINE SULFATE 2 MG/ML SYRINGE IV PRN ×3 (02:52→15:29)
[2021-07-29 12:28] VITALS: BMI 27.1
[2021-07-29] MEDS: MORPHINE SULFATE (100 MG/2 ML) 100 MG in SODIUM CHLORIDE 0.9% 100 ML IV SCH ×2 (18:47→18:53)
[2021-07-30] MEDS ORDERED: ENOXAPARIN 30 MG/0.3 ML SYRINGE SQ SCH (09:00)
[2021-07-30 09:24] VITALS: TEMP 97.2
[2021-07-30 12:40] VITALS: PULSE 0; RESP 0
== END 2021-07-30 15:18 | disposition expired | DRG 951 ==
LOC: 3SCARD 15:37
PROVIDERS: ADMIT Family Medicine; ATTEND Family Medicine
DX: Z51.5 Encounter for palliative care (principal); J12.82 Pneumonia due to coronavirus disease 2019; N17.0 Acute kidney failure with tubular necrosis; U07.1 COVID-19; A41.89 Other specified sepsis; J96.01 Acute respiratory failure with hypoxia; A41.50 Gram-negative sepsis, unspecified; E87.2 Acidosis; K62.6 Ulcer of anus and rectum; E87.5 Hyperkalemia; I48.91 Unspecified atrial fibrillation; L89.159 Pressure ulcer of sacral region, unspecified stage; I10 Essential (primary) hypertension; K60.4 Rectal fistula; G31.84 Mild cognitive impairment of uncertain or unknown etiology; Z87.891 Personal history of nicotine dependence